=== PATIENT | female | born 1960 ===

== ENCOUNTER 2020-03-31 07:56 | Outpatient (REF) | payer OTHER, SELFPAY ==
--- NOTE | 2020-03-31 08:01 | MM_ITS ---
EXAMINATION: MM SCREENING DIGITAL BREAST TOMOSYNTHESIS, BILATERAL CLINICAL INFORMATION: Screening. Asymptomatic. The lifetime risk of breast cancer based on the Tyrer-Cuzick Model is 6%. COMPARISON: Mammography: 03/26/2019, 11/14/2017, 07/26/2016 TECHNIQUE: Digital breast tomosynthesis is performed in both the craniocaudal and mediolateral oblique views along with computer-aided detection (CAD). Synthesized 2D images are generated from the tomosynthesis. FINDINGS: There are scattered areas of fibroglandular density (ACR BI-RADS breast composition Category b). There are no significant masses, abnormal calcifications, or other abnormalities. Parenchymal pattern is similar to prior studies. Low right axillary tail node on MLO view is stable. The skin contours are unremarkable. MM/MM tomosynthesis screening BI IMPRESSION: No mammographic evidence of malignancy. ASSESSMENT: BI-RADS 1: Negative RECOMMENDATION: Routine annual mammography screening. This patient's information was entered into a reminder system with a target due date for their next mammogram.
== END 2020-03-31 07:57 | disposition home or self-care (01) ==
LOC: HO.MAMMO 07:56
PROVIDERS: PCP Physician Assistant; Visit Provider Physician Assistant
DX: Z12.31 Encounter for screening mammogram for malignant neoplasm of breast (principal)
CPT/HCPCS: 77063; 77067

== ENCOUNTER 2020-04-30 11:07 | Outpatient (REF) | payer OTHER, SELFPAY ==
--- NOTE | 2020-04-30 11:13 | XR_ITS ---
EXAMINATION: XR CHEST CLINICAL INFORMATION: Acute respiratory infection. COMPARISON: None. TECHNIQUE: 2 views of the chest were obtained. FINDINGS: Cardiomediastinal silhouette is normal. There is mild peribronchial thickening centrally and in the lower lobes. Linear atelectasis/scarring in the left midlung. No dense consolidation. No effusion, edema or pneumothorax. No acute osseous abnormality. XR/XR chest 2V IMPRESSION: Mild bronchial wall thickening, can be seen with small airway disease, infectious or inflammatory process. No confluent consolidation seen.
== END 2020-04-30 11:08 | disposition home or self-care (01) ==
LOC: HO.HMGCX 11:07
PROVIDERS: PCP Physician Assistant; Visit Provider Nurse Practitioner Family
DX: J06.9 Acute upper respiratory infection, unspecified (principal)
CPT/HCPCS: 71046

== ENCOUNTER 2020-05-05 08:42 | Outpatient (REF) | payer OTHER, SELFPAY ==
[2020-05-05 09:43] LABS: Microalbum/Creatinine Ratio Ur 8.6 ug/mg cr
[2020-05-05 09:45] LABS: Alanine Aminotransferase 41 U/L (0-31); Albumin Level 3.8 g/dL (3.5-5.0); Alkaline Phosphatase 161 U/L (39-117); Anion Gap 10 (12-20); Aspartate Amino Transferase 16 U/L (5-31); Bilirubin Total 0.6 mg/dL (0.0-1.0); Blood Urea Nitrogen 18 mg/dL (9-16); Carbon Dioxide 32 mmol/L (22-29); Chloride 105 mmol/L (96-108); Cholesterol 177 mg/dL; Estimated Glomerular Filt Rate > 60; Glucose Fasting 80 mg/dL (60-99); HDL Cholesterol 58 mg/dL; LDL Cholesterol Calculated 109 mg/dl; Potassium 3.8 mmol/l (3.3-5.1); Sodium 143 mmol/L (135-145); Total Protein 6.6 g/dL (6.5-8.0); Triglycerides 54 mg/dL
[2020-05-05 10:05] LABS: TSH reflex Free T4 1.24 mIU/mL (0.32-4.0)
== END 2020-05-05 08:43 | disposition home or self-care (01) ==
LOC: HO.LAB 08:42
PROVIDERS: PCP Physician Assistant; Visit Provider Physician Assistant
DX: Z20.828 Contact with and (suspected) exposure to other viral communicable diseases (principal); I10 Essential (primary) hypertension; E03.9 Hypothyroidism, unspecified
CPT/HCPCS: 80053; 80061; 82043; 84443

== ENCOUNTER 2020-11-24 08:53 | Outpatient (REF) | payer OTHER, SELFPAY ==
[2020-11-24 09:33] LABS: Hematocrit 40.9 % (37-47); Hemoglobin 13.3 g/dl (12.0-16.0); Mean Corpuscular HGB Conc 32.5 g/dl (31.0-35.0); Mean Corpuscular Hemoglobin 29.1 pg (27.0-33.0); Mean Corpuscular Volume 89.5 fL (80-98); Mean Platelet Volume 9.8 fL (9.4-12.3); Platelet Count 346 X10*3/uL (160-400); Red Blood Count 4.57 X10*6/uL (4.20-5.50); Red Cell Distribution Width 12.1 % (11.0-16.0)
[2020-11-24 09:42] LABS: Estimated Average Glucose 103 mg/dL; Hemoglobin A1c % 5.2 %
[2020-11-24 09:54] LABS: Creatinine Urine 89.53 mg/dL; Microalbum/Creatinine Ratio Ur 7.8 ug/mg cr
[2020-11-24 10:20] LABS: Alanine Aminotransferase 14 U/L (0-31); Albumin Level 3.8 g/dL (3.5-5.0); Alkaline Phosphatase 157 U/L (39-117); Anion Gap 9 (12-20); Aspartate Amino Transferase 17 U/L (5-31); Bilirubin Total 0.8 mg/dL (0.0-1.0); Blood Urea Nitrogen 14 mg/dL (9-16); Calcium 9.4 mg/dL (8.4-10.2); Carbon Dioxide 29 mmol/L (22-29); Chloride 107 mmol/L (96-108); Cholesterol 169 mg/dL; Estimated Glomerular Filt Rate > 60; Glucose Fasting 90 mg/dL (60-99); HDL Cholesterol 53 mg/dL; LDL Cholesterol Calculated 107 mg/dl; Potassium 4.4 mmol/L (3.3-5.1); Sodium 141 mmol/L (135-145); Total Protein 6.6 g/dL (6.5-8.0); Triglycerides 47 mg/dL
[2020-11-24 10:21] LABS: TSH reflex Free T4 2.88 uIU/mL (0.32-4.0)
== END 2020-11-24 08:54 | disposition home or self-care (01) ==
LOC: HO.LAB 08:53
PROVIDERS: PCP Physician Assistant; Visit Provider Physician Assistant
DX: I10 Essential (primary) hypertension (principal); E03.9 Hypothyroidism, unspecified
CPT/HCPCS: 36415; 80053; 80061; 82043; 83036; 84443; 85027

== ENCOUNTER → 2021-05-13 15:47 | Outpatient (REF) | payer OTHER, SELFPAY | LOC: HO.SL 15:47 | PROVIDERS: PCP Physician Assistant; Visit Provider Physician Assistant | DX: R06.81 Apnea, not elsewhere classified (principal) | CPT/HCPCS: 95806 ==

== ENCOUNTER 2021-06-08 08:56 | Outpatient (REF) | payer OTHER, SELFPAY ==
--- NOTE | ~2021-06-08 | MM_ITS ---
EXAMINATION: MM SCREENING DIGITAL BREAST TOMOSYNTHESIS, BILATERAL CLINICAL INFORMATION: Screening. Asymptomatic. The lifetime risk of breast cancer based on the Tyrer-Cuzick Model is 6%. COMPARISON: Mammography: 03/31/2020, 03/26/2019, 11/14/2017 TECHNIQUE: Digital breast tomosynthesis is performed in both the craniocaudal and mediolateral oblique views along with computer-aided detection (CAD). Synthesized 2D images are generated from the tomosynthesis. FINDINGS: There are scattered areas of fibroglandular density (ACR BI-RADS breast composition Category b). There are no significant masses, abnormal calcifications, or other abnormalities. Parenchymal pattern is similar to prior studies. There is no developing density or architectural abnormality. The axilla and skin contours are unremarkable. No significant changes. MM/MM tomosynthesis screening BI IMPRESSION: No mammographic evidence of malignancy. ASSESSMENT: BI-RADS 1: Negative RECOMMENDATION: Routine annual mammography screening. This patient's information was entered into a reminder system with a target due date for their next mammogram.
== END 2021-06-08 08:57 | disposition home or self-care (01) ==
LOC: HO.MAMMO 08:56
PROVIDERS: PCP Physician Assistant; Visit Provider Physician Assistant
DX: Z12.31 Encounter for screening mammogram for malignant neoplasm of breast (principal)
CPT/HCPCS: 77063; 77067

== ENCOUNTER 2021-08-09 06:14 | Day surgery (SDC) | payer OTHER, SELFPAY ==
[2021-08-05 11:49] VITALS: BMI 31.2
--- NOTE | 2021-08-08 08:34 | P.CONAN_ITS ---
Documented by User: Pinky Valente NP 08/08/21 08:34 HPI - Anesthesia Eval Consult details Narrative: 61yo F for Colonoscopy PMFSH Active Problems Active Problems: All Active Problems (Updated 08/05/21 @ 11:45 by Connie Jaramillo RN) HTN (hypertension) (Acute) Upper respiratory virus (Acute) Conjunctivitis (Acute) HTN (hypertension) (Acute) KASSY (generalized anxiety disorder) (Acute) Hypothyroidism (Acute) Eye pain (Acute) Witnessed episode of apnea (Acute) Paresthesia (Acute) Lower extremity edema (Acute) Past Medical History Medical History (Updated 08/05/21 @ 11:45 by Connie Jaramillo RN) Asthma HTN (hypertension) Hypothyroid Sleep apnea Family History Family History Father Diabetes Hypertension Stroke Mother Dementia Daughter In good health Sister No problems noted. Brother No problems noted. Surgical History Surgical History (Updated 08/05/21 @ 11:46 by Connie Jaramillo RN) H/O colonoscopy History of removal of ovarian cyst History of thyroidectomy Status post cystoscopy Social History Social History Housing: House Alcohol intake: current Alcohol intake frequency: holidays/special occasions only Patient Tobacco Use Status: Never used Tobacco Tobacco use type: Cigarette e-Cigarette/Vaping Use: Never Used Second Hand Smoke Exposure: No Advance Directives: No Advance Directives Information Provided: Yes Advance Directives on File: No Meds Allergies Allergy/AdvReac Type Severity Reaction Status Date / Time No Known Allergies Allergy Verified 03/19/21 13:46 Home Medications Medication Instructions Recorded Confirmed Last Taken Type fluticasone propionate 50 1 spray INTRANASAL DAILY 08/05/21 08/05/21 Unknown History mcg/actuation nasal spray,suspension Exam Exam Date and Time: August 08, 2021 0834 Height,Weight and Vital Signs: Height 5 ft 4.5 in Weight 83.915 kg Assessment and Plan Assessment Anesthesia Assessment: Chart Reviewed Documented by User: Fátima Kathleen MD 08/09/21 06:54 [facility] Past Medical History Medical History (Updated 08/05/21 @ 11:45 by Connie Jaramillo RN) Asthma HTN (hypertension) Hypothyroid Sleep apnea Family History Family History Father Diabetes Hypertension Stroke Mother Dementia Daughter In good health Sister No problems noted. Brother No problems noted. Family history of problems with anesthesia: No Surgical History Surgical History (Updated 08/05/21 @ 11:46 by Connie Jaramillo RN) H/O colonoscopy History of removal of ovarian cyst History of thyroidectomy Status post cystoscopy History of Problems with Anesthesia: No Social History Social History Housing: House Alcohol intake: current Alcohol intake frequency: holidays/special occasions only Patient Tobacco Use Status: Never used Tobacco Tobacco use type: Cigarette e-Cigarette/Vaping Use: Never Used Second Hand Smoke Exposure: No Advance Directives: No Advance Directives Information Provided: Yes Advance Directives on File: No Meds Allergies Allergy/AdvReac Type Severity Reaction Status Date / Time No Known Allergies Allergy Verified 03/19/21 13:46 Home Medications Medication Instructions Recorded Confirmed Last Taken Type fluticasone propionate 50 1 spray INTRANASAL DAILY 08/05/21 08/05/21 Unknown History mcg/actuation nasal spray,suspension Exam Airway Mallampati Class: II TM Dist: >3cm Neck ROM: Full Heart: rrr Lungs: cta Assessment and Plan Assessment Anesthesia Assessment: Anesthesia Plan Discussed and Chart Reviewed Final Anesthetic Review Family History of Problems with Anesthesia: No History of Problems with Anesthesia: No NPO: Yes ASA Class: II Final Preanesthetic Review: No Changes in Pt Med Stat, Meds/Allgs Chart Reviewed and Consent Obtained/Reviewed Patient Risk: Intermediate Procedure Risk: Intermediate Anesthetic Plan Anesthetic Plan: MAC: Disposition: Standard PACU
[2021-08-09 06:25] VITALS: BP 142/85; PULSE 90; RESP 17; TEMP 36.4; O2SAT 98; BMI 30.4
[2021-08-09] MEDS: Lactated Ringers 1,000 ML 100 ML IVCONT (06:59)
--- NOTE | 2021-08-09 08:28 | P.BOP_ITS ---
Brief Operative Note Date of Service: 08/09/21 Pre-op diagnosis: Screening Post-op diagnosis: other (Diverticulosis) Procedure: Colonoscopy to the cecum and TI Surgeon: Paolo Narayan Anesthesia: MAC Was an Hydraulic Hammer Operator used for this Procedure?: No Estimated blood loss (mL): 0 Pathology: none sent Condition: stable Disposition: PACU
[2021-08-09 08:29] VITALS: BP 115/64; PULSE 64; RESP 12; TEMP 36.5; O2SAT 100
[2021-08-09 08:44] VITALS: BP 128/74; PULSE 66; RESP 18; TEMP 36.5; O2SAT 99
--- NOTE | 2021-08-09 09:34 | OP_ITS ---
SURGEON: Paolo Narayan MD INDICATIONS: The patient presents for evaluation of colorectal cancer screening. Full consent has been obtained from her for this, including risks of bleeding and perforation. PREOPERATIVE DIAGNOSIS: Colorectal cancer screening. POSTOPERATIVE DIAGNOSIS: Colorectal cancer screening, sigmoid diverticulosis, and internal hemorrhoids. PROCEDURE PERFORMED: Colonoscopy to the cecum and terminal ileum. ESTIMATED BLOOD LOSS: COMPLICATIONS: ANESTHESIA: Preoperative medication used monitored anesthesia care. ASSISTANTS: SPECIMENS: DESCRIPTION OF PROCEDURE: The patient was placed in the left lateral decubitus position. The digital rectal exam revealed no abnormalities. The Olympus video pediatric colonoscope was entered into the rectum and advanced easily to the cecum. Once in the cecum, I did identify normal-appearing cecal pouch with appendiceal orifice and a normal-appearing ileocecal valve. The terminal ileum was cannulated and appeared normal. The scope was withdrawn back in the colon. The entire cecum and ileocecal valve appeared normal. The scope was slowly withdrawn assessing all mucosal surfaces carefully. Preparation was excellent. I did not visualize any sign of polyps, colitis, or angiodysplasia. There was a mild amount of sigmoid diverticulosis. In the rectum, scope was retroflexed visualizing small internal hemorrhoids, but no other pathology. The rectal mucosa appeared normal. The scope was straightened and withdrawn from the patient. She tolerated the procedure well and was returned to recovery area in stable condition. IMPRESSION: 1. Mild sigmoid diverticulosis. 2. Small internal hemorrhoids. PLAN: Given the negative exam, I would recommend a repeat colonoscopy in 10 years for further screening. She will otherwise see me on a p.r.n. basis. MD TARSHA Hughes/SCOTT / [phone]
== END 2021-08-09 09:05 | disposition home or self-care (01) ==
PROVIDERS: PCP Physician Assistant; Visit Provider Internal Medicine
PROC: 0DJD8ZZ Inspection of Lower Intestinal Tract, Via Natural or Artificial Opening Endoscopic (ICD-10-PCS; CPT 45378; principal; 2021-08-09 07:30)
DX: Z12.11 Encounter for screening for malignant neoplasm of colon (principal); K57.30 Diverticulosis of large intestine without perforation or abscess without bleeding; K64.8 Other hemorrhoids; I10 Essential (primary) hypertension; E03.9 Hypothyroidism, unspecified; G47.33 Obstructive sleep apnea (adult) (pediatric); J45.909 Unspecified asthma, uncomplicated; Z79.51 Long term (current) use of inhaled steroids; Z79.82 Long term (current) use of aspirin; Z79.899 Other long term (current) drug therapy
CPT/HCPCS: 45378

== ENCOUNTER 2022-06-14 09:50 | Outpatient (REF) | payer OTHER, SELFPAY ==
--- NOTE | ~2022-06-14 | MM_ITS ---
EXAMINATION: MM SCREENING DIGITAL BREAST TOMOSYNTHESIS, BILATERAL CLINICAL INFORMATION: Screening. Asymptomatic. The lifetime risk of breast cancer based on the Tyrer-Cuzick Model is 5%. COMPARISON: Mammography: 06/08/2021, 04/06/2020, 03/26/2019, 11/14/2017 TECHNIQUE: Digital breast tomosynthesis is performed in both the craniocaudal and mediolateral oblique views along with computer-aided detection (CAD). Synthesized 2D images are generated from the tomosynthesis. FINDINGS: There are scattered areas of fibroglandular density (ACR BI-RADS breast composition Category b). There are no significant masses, abnormal calcifications, or other abnormalities. There is summation density posterior outer right breast on synthesized right CC view no developing density or architectural abnormality. The axilla and skin contours are unremarkable. No significant changes. MM/MM tomosynthesis screening BI IMPRESSION: No mammographic evidence of malignancy. ASSESSMENT: BI-RADS 2: Benign RECOMMENDATION: Routine annual mammography screening. This patient's information was entered into a reminder system with a target due date for their next mammogram.
== END 2022-06-14 09:51 | disposition home or self-care (01) ==
LOC: HO.MAMMO 09:50
PROVIDERS: PCP Physician Assistant; Visit Provider Physician Assistant
DX: Z12.31 Encounter for screening mammogram for malignant neoplasm of breast (principal)
CPT/HCPCS: 77063; 77067

== ENCOUNTER 2022-07-26 07:38 | Outpatient (REF) | payer OTHER, SELFPAY ==
[2022-07-26 08:13] LABS: Basophils Absolute Auto 0.1 X10*3/uL (0.0-0.2); Basophils Percent Auto 2.4 % (0-2); Eosinophils Absolute Auto 0.4 X10*3/uL (0.0-0.4); Eosinophils Percent Auto 7.3 % (0-4); Hematocrit 40.1 % (37.0-47.0); Hemoglobin 13.4 g/dl (12.0-16.0); Imm Gran Abs Auto 0.02 X10*3/uL (0.00-0.03); Imm Gran Pct Auto 0.4 % (0.0-0.4); Lymphocytes Percent Auto 36.8 % (20-40); MANUAL DIFF FLAG NO; Mean Corpuscular HGB Conc 33.4 g/dl (31.0-35.0); Mean Corpuscular Hemoglobin 28.8 pg (27.0-33.0); Mean Corpuscular Volume 86.2 fL (80.0-98.0); Mean Platelet Volume 9.5 fL (9.4-12.3); Monocytes Absolute Auto 0.4 X10*3/uL (0.1-1.2); Monocytes Percent Auto 6.9 % (2-11); Neutrophils Absolute Auto 2.5 x10*3/uL (2.0-8.3); Neutrophils Percent Auto 46.2 % (45-73); Platelet Count 358 X10*3/uL (160-400); Red Blood Count 4.65 X10*6/uL (4.20-5.50); Red Cell Distribution Width 12.3 % (11.0-16.0); White Blood Count 5.4 X10*3/uL (4.8-10.8)
[2022-07-26 12:28] LABS: Alanine Aminotransferase 21 U/L (0-31); Albumin Level 3.7 g/dL (3.5-5.0); Alkaline Phosphatase 170 U/L (39-117); Anion Gap 16 (12-20); Aspartate Amino Transferase 19 U/L (5-31); Bilirubin Total 0.7 mg/dL (0.0-1.0); Blood Urea Nitrogen 15 mg/dL (9-16); Calcium 9.1 mg/dL (8.4-10.2); Carbon Dioxide 23 mmol/L (22-29); Chloride 107 mmol/L (96-108); Cholesterol 189 mg/dL; Estimated Glomerular Filt Rate > 60; Glucose Fasting 96 mg/dL (60-99); HDL Cholesterol 50 mg/dL; LDL Cholesterol Calculated 125 mg/dl; Potassium 4.4 mmol/L (3.3-5.1); Sodium 142 mmol/L (135-145); Total Protein 6.3 g/dL (6.5-8.0); Triglycerides 71 mg/dL
[2022-07-26 12:56] LABS: Folate 13.1 ng/mL (> or = 4.0); Free T4 (Free Thyroxine) 1.15 ng/dL (0.71-1.85); TSH reflex Free T4 0.25 uIU/mL (0.32-4.0); Vitamin B12 484 pg/mL (200-900); Vitamin D 25-OH Total 39.2 ng/mL (>30)
== END 2022-07-26 07:39 | disposition home or self-care (01) ==
LOC: HO.LAB 07:38
PROVIDERS: PCP Physician Assistant; Visit Provider Nurse Practitioner Family
DX: E03.9 Hypothyroidism, unspecified (principal); I10 Essential (primary) hypertension; J45.909 Unspecified asthma, uncomplicated; F41.9 Anxiety disorder, unspecified
CPT/HCPCS: 36415; 80053; 80061; 82306; 82607; 82746; 84439; 84443; 85025

== ENCOUNTER 2022-09-20 08:19 | Outpatient (REF) | payer OTHER, SELFPAY ==
[2022-09-20 09:34] LABS: TSH reflex Free T4 0.12 uIU/mL (0.32-4.0)
[2022-09-20 10:45] LABS: Free T4 (Free Thyroxine) 1.65 ng/dL (0.71-1.85)
== END 2022-09-20 08:20 | disposition home or self-care (01) ==
LOC: HO.LAB 08:19
PROVIDERS: Visit Provider Nurse Practitioner Family
DX: E03.9 Hypothyroidism, unspecified (principal)
CPT/HCPCS: 36415; 84439; 84443

== ENCOUNTER 2022-11-15 07:40 | Outpatient (REF) | payer OTHER, SELFPAY | END 2022-11-15 07:41 | disposition home or self-care (01) | LOC: HO.LAB 07:40 | PROVIDERS: PCP Physician Assistant; Visit Provider Nurse Practitioner Family | DX: E03.9 Hypothyroidism, unspecified (principal) | CPT/HCPCS: 36415; 84443 ==

== ENCOUNTER 2023-01-27 15:29 | Outpatient (AMB) | payer OTHER, SELFPAY ==
[2023-01-27 15:49] VITALS: BP 130/86; PULSE 78; RESP 16; O2SAT 98; BMI 27.2
--- NOTE | 2023-01-27 15:49 | MHC.PC.OV ---
Vital Signs 01/27/23 15:49 Height 5 ft 4.5 in Weight 161 lb 2 oz BMI 27.2 BP 130/86 Blood Pressure Location Lt brachial Position Sitting Respiration 16 Pulse 78 Pulse Source Pulse Oximeter Pulse Oximetry (%) 98 Oxygen Delivery Method Room Air Intake Visit Reasons: HTN, thyroid Intake Note: Patient is here to follow up on HTN and thyroid. Information Technology Security Manager Required: No Accompanied by: Self / Same As Patient Allergies No Known Allergies Allergy (Verified 01/27/23 16:12) Medication List - Last Reconciled 01/27/23 by Luis Coker PA-C albuterol sulfate 90 mcg/actuation (ProAir HFA) 2 puffs inhalation Q4-6H PRN aspirin 81 mg PO DAILY compr.stocking,knee,long,large As directed levothyroxine 112 mcg PO DAILY lisinopril 20 mg PO DAILY Tobacco use date assessed: 07/24/22 Fall risk assessment: No Falls in past year Last assessed Fall Risk: 01/27/23 Dental Screening Dental Screen Date: 01/27/23 Did you have a dental visit in the last 12 months?: Yes Did you have a dental problem in the last 6 months where you did not have access to dental care?: No Was dental information given to patient?: Patient has dentist HPI HTN, thyroid HPI Details This 62year-old female here today for a follow-up visit. Patient has a past medical history significant for hypertension, hypothyroidism, generalized anxiety disorder. . .. HTN: Blood pressure acceptable today in office. She does report at times feeling somewhat lightheaded with changes in her body position. Questioning orthostatic hypotension. Has lost a significant amount of weight since last office visit intentionally as she has been more physically active and adapting to better eating habits. . Hypothyroidism: TSH recently found to be low thus levothyroxine dose has been reduced to 112 mcg. Most recent TSH has stabilized.. .. Asthma: Has been fairly well controlled, has been able to hike and be more physically active without much shortness of breath. Only rarely using her albuterol inhaler. COUNTS INCLUDE 234 BEDS AT THE [facility] Medical History Asthma Hypothyroid HTN (hypertension) Sleep apnea Surgical History H/O colonoscopy Status post cystoscopy History of removal of ovarian cyst History of thyroidectomy Family History Father Diabetes Hypertension Stroke Mother Dementia Daughter In good health Sister No problems noted. Brother No problems noted. Social History Housing: House Alcohol intake: current Alcohol intake frequency: holidays/special occasions only Patient Tobacco Use Status: Never used Tobacco Tobacco use type: Cigarette e-Cigarette/Vaping Use: Never Used Second Hand Smoke Exposure: No service: No Cognitive needs: No Hearing needs: No Vision needs: No Questionnaire Thrive Questionnaire Date Thrive assessed: 07/24/22 KASSY-7 AMB Questionnaire KASSY-7 Date KASSY - 7 assessed: 07/24/22 Source: Developed by Drs. Paolo Salazar, Genny Juarez, Hamilton Rashid and colleagues, with an educational yung from [employer]. ACT Questionnaire In the past 4 weeks, how much of the time did your asthma keep you from getting as much done at work, school or at home?: None of the time During the past 4 weeks, how often have you had shortness of breath?: Not at all During the past 4 weeks, how often did your asthma symptoms wake you up at night or earlier than usual in the morning?: Not at all During the past 4 weeks, how often have you had to use your rescue inhaler or nebulizer medication?: Not at all How would you rate your asthma control during the past 4 weeks?: Completely controlled Score: 25 Review of Systems Const Denies headache(s) Eyes Denies loss of vision ENT Denies vertigo, Denies dizziness, Denies headache(s) and Denies sore throat Card Denies chest pain, Denies leg edema and Denies lightheadedness Resp Denies cough, Denies hemoptysis and Denies wheezing GI Denies abdominal pain, Denies melena, Denies constipation, Denies diarrhea and Denies vomiting Denies urinary frequency, Denies dysuria and Denies urinary urgency Musc Denies arthralgias, Denies joint swelling, Denies numbness and Denies tingling Neuro Denies Abnormal speech present, Denies behavioral changes, Denies vertigo, Denies dizziness, Denies headache(s), Denies loss of vision, Denies memory loss, Denies numbness and Denies tingling Psych Denies anxiety, Denies behavioral changes, Denies depression, Denies memory loss and Denies panic attacks [place]/Lymph Denies easy bleeding and Denies easy bruising Aller/Immun Denies wheezing Physical exam (Primary Care) Vital Signs: Last Vital Signs Pulse 78 01/27/23 15:49 Resp 16 01/27/23 15:49 BP 130/86 01/27/23 15:49 Pulse Ox 98 01/27/23 15:49 Oxygen Delivery Method Room Air 01/27/23 15:49 BMI result Body Mass Index 27.2 Tobacco/Smoking Status: Tobacco use Status Tobacco use date assessed 07/24/22 01/27/23 15:54 Patient Tobacco Use Status Never used Tobacco 01/27/23 15:54 Tobacco use type Cigarette 01/27/23 15:54 e-Cigarette/Vaping Use Never Used 01/27/23 15:54 Thrive Assessment: Date of Thrive Assessment Date Thrive assessed 07/24/22 01/27/23 15:54 Const General: healthy appearing, no acute distress, alert and awake Nutritional Appearance: well nourished Orientation/consciousness: oriented to person, oriented to place and oriented to time HENMT Ears: TM's normal bilaterally General nose exam: Normal nasal mucous membranes and turbinates present Eyes Conjunctivae: conjunctivae normal Sclerae: sclerae normal Pupils: Equal, round and reactive pupils present Neck Neck: Yes no lymphadenopathy and Yes no JVD Thyroid: Thyroid normal Carotids: no bruits Resp Effort & Inspection: normal respiratory effort and not tachypneic Auscultation: no crackles, no rales, no rhonchi and no wheezes Cardio Rate: regular rate Rhythm: regular rhythm Heart sounds: no murmurs and normal S1 and S2 GI Palpation (GI): Soft to palpation, nontender, no hepatomegaly and no splenomegaly Auscultation: normal bowel sounds Skin General skin exam: no rashes or lesions noted and dry skin Neuro General: oriented to person, oriented to place and oriented to time Cranial nerves: Yes Equal, round and reactive pupils present Speech: No Abnormal speech present Gait exam (Neuro): Normal gait present Motor exam (neuro): no tremor noted Extrem Right upper extremity: full ROM Left upper extremity: full ROM Right lower extremity: full ROM; no edema Left lower extremity: full ROM; no edema Psych Mental Status: mental status grossly normal Speech and movement: Normal speech and movement present Affect: normal affect Attitude: cooperative Thought process: Normal thought process present Assessment and Plan Assessment & Plan (1) HTN (hypertension): Code(s): I10 - Essential (primary) hypertension Qualifiers: Hypertension type: primary hypertension Qualified Code(s): I10 - Essential (primary) hypertension Plan: Blood pressure acceptable today in office. Has been noting some dizziness with changes in body position. Has lost significant amount of weight intentionally. Will reduce her dose of lisinopril to 10 mg. Goal blood pressures to be below 140/90. Again advised low-sodium diet and being more physically active to reduce her weight. (2) Hypothyroidism: Code(s): E03.9 - Hypothyroidism, unspecified Qualifiers: Hypothyroidism type: unspecified Qualified Code(s): E03.9 - Hypothyroidism, unspecified Plan: Patient's TSH normal will continue her on current dose of levothyroxine. (3) Asthma: Comment: mild Code(s): J45.909 - Unspecified asthma, uncomplicated Qualifiers: Asthma severity: mild Asthma persistence: intermittent Asthma complication type: uncomplicated Qualified Code(s): J45.20 - Mild intermittent asthma, uncomplicated Plan: Patient's asthma is reported as well controlled with only p.r.n. use of albuterol inhaler. She does not have any nighttime awakenings with asthma symptoms or recent asthma exacerbations per Orders: Orders Comprehensive [place]. Panel Fast 4 Months I10 - Essential (primary) hypertension Complete Blood Count no Diff 4 Months I10 - Essential (primary) hypertension TSH reflex Free T4 4 Months E03.9 - Hypothyroidism, unspecified Microalbumin, Random (w Creat) 4 Months I10 - Essential (primary) hypertension Medications: New lisinopril 10 mg PO DAILY 90 days 90 tabs 1RF I10 - Essential (primary) hypertension Discontinued lisinopril Discontinued Reason: Doctor's Order 20 mg PO DAILY 90 tabs 1RF I10 - Essential (primary) hypertension Coding Level of Care Code Est Pt Level 4 (50226) Diagnoses Primary hypertension I10 Hypertension type: primary hypertension Hypothyroidism, unspecified type E03.9 Hypothyroidism type: unspecified Mild intermittent asthma without complication J45.20 Asthma severity: mild Asthma persistence: intermittent Asthma complication type: uncomplicated
== END 2023-01-27 16:29 | disposition home or self-care (01) ==
PROVIDERS: PCP Physician Assistant; Visit Provider Physician Assistant
DX: I10 Essential (primary) hypertension (principal); E03.9 Hypothyroidism, unspecified; J45.20 Mild intermittent asthma, uncomplicated
CPT/HCPCS: 99214

== ENCOUNTER 2023-06-06 08:11 | Outpatient (REF) | payer OTHER, SELFPAY ==
[2023-06-06 09:05] LABS: Hematocrit 41.6 % (37.0-47.0); Hemoglobin 13.5 g/dl (12.0-16.0); Mean Corpuscular HGB Conc 32.5 g/dl (31.0-35.0); Mean Corpuscular Hemoglobin 28.2 pg (27.0-33.0); Mean Corpuscular Volume 86.8 fL (80.0-98.0); Mean Platelet Volume 9.5 fL (9.4-12.3); Platelet Count 389 X10*3/uL (160-400); Red Blood Count 4.79 X10*6/uL (4.20-5.50); Red Cell Distribution Width 11.8 % (11.0-16.0); White Blood Count 5.4 X10*3/uL (4.8-10.8)
[2023-06-06 09:41] LABS: Alanine Aminotransferase 30 U/L (0-31); Albumin Level 3.9 g/dL (3.5-5.0); Alkaline Phosphatase 189 U/L (39-117); Anion Gap 11 (12-20); Aspartate Amino Transferase 28 U/L (5-31); Bilirubin Total 0.4 mg/dL (0.0-1.0); Blood Urea Nitrogen 16 mg/dL (9-16); Calcium 9.3 mg/dL (8.4-10.2); Carbon Dioxide 29 mmol/L (22-29); Chloride 107 mmol/L (96-108); Estimated Glomerular Filt Rate > 60; Glucose Fasting 91 mg/dL (60-99); Potassium 4.1 mmol/L (3.3-5.1); Sodium 143 mmol/L (135-145); Total Protein 6.8 g/dL (6.5-8.0)
[2023-06-06 09:45] LABS: Creatinine Urine 91.42 mg/dL; Microalbum/Creatinine Ratio Ur 6.5 ug/mg cr (<30)
[2023-06-06 10:01] LABS: TSH reflex Free T4 2.05 uIU/mL (0.32-4.0)
== END 2023-06-06 08:12 | disposition home or self-care (01) ==
LOC: HO.LAB 08:11
PROVIDERS: PCP Physician Assistant; Visit Provider Physician Assistant
DX: I10 Essential (primary) hypertension (principal); E03.9 Hypothyroidism, unspecified
CPT/HCPCS: 36415; 80053; 82043; 82570; 84443; 85027

== ENCOUNTER 2023-06-20 09:08 | Outpatient (REF) | payer OTHER, SELFPAY | END 2023-06-20 09:09 | disposition home or self-care (01) | LOC: HO.MAMMO 09:08 | PROVIDERS: PCP Physician Assistant; Visit Provider Physician Assistant | DX: Z12.31 Encounter for screening mammogram for malignant neoplasm of breast (principal) | CPT/HCPCS: 77063; 77067 ==

== ENCOUNTER → 2023-06-20 09:15 | Outpatient (BNV) | payer OTHER, SELFPAY | PROVIDERS: PCP Physician Assistant; Visit Provider Radiology Diagnostic Radiology | DX: Z12.31 Encounter for screening mammogram for malignant neoplasm of breast (principal) | CPT/HCPCS: 77063; 77067 ==

== ENCOUNTER 2023-07-29 14:17 | Outpatient (AMB) | payer OTHER, SELFPAY ==
[2023-07-29 14:44] VITALS: BP 150/84; PULSE 84; RESP 16; O2SAT 97; BMI 27.5
--- NOTE | 2023-07-29 14:44 | A.OFFPC_ITS ---
Vital Signs 07/29/23 14:44 Height 5 ft 4.5 in Weight 163 lb BMI 27.5 BP 150/84 H Blood Pressure Location Lt brachial Position Sitting Respiration 16 Pulse 84 Pulse Source Pulse Oximeter Pulse Oximetry (%) 97 Oxygen Delivery Method Room Air Intake Visit Reasons: Annual exam Intake Note: Patient is here today for a physical. Accompanied by: Self / Same As Patient Allergies No Known Allergies Allergy (Verified 07/29/23 14:52) Medication List - Last Reconciled 07/29/23 by Luis Coker PA-C albuterol sulfate 90 mcg/actuation (ProAir HFA) 2 puffs inhalation Q4-6H PRN compr.stocking,knee,long,large As directed levothyroxine 112 mcg PO DAILY lisinopril 10 mg PO DAILY 90 days Tobacco use date assessed: 07/29/23 Fall risk assessment: No Falls in past year Last assessed Fall Risk: 07/29/23 Dental Screening Dental Screen Date: 07/29/23 Did you have a dental visit in the last 12 months?: Yes Did you have a dental problem in the last 6 months where you did not have access to dental care?: No Was dental information given to patient?: Patient has dentist HPI Annual exam HPI Details This 63 year-old female here today for PE . Patient has a past medical history significant for hypertension, hypothyroidism, generalized anxiety disorder. . .. HTN: Blood pressure slightly elevated today in office. She reports that home blood pressures have been 120s to 130 systolic. At last visit we did discuss reducing her lisinopril due to signs symptoms of hypotension. She otherwise feels very good . Hypothyroidism: TSH recently found to be low thus levothyroxine dose has been reduced to 112 mcg. Most recent TSH has stabilized.. .. Asthma: Has been fairly well controlled, has been able to hike and be more physically active without much shortness of breath. Only rarely using her albuterol inhaler. Mammogram: Mammograms BI-RADS 18 June 2023 // Colonoscopy: Colonoscopy done in 2021- normal- 10 year .. Vaccine: UTD with FLu, UTD with Tdap. Up-to-date with shingles, pneumonia and COVID vaccine [facility] Medical History Asthma Hypothyroid HTN (hypertension) Sleep apnea Surgical History H/O colonoscopy Status post cystoscopy History of removal of ovarian cyst History of thyroidectomy Family History Father Diabetes Hypertension Stroke Mother Dementia Daughter In good health Sister No problems noted. Brother No problems noted. Social History (Updated 07/29/23 @ 14:58 by Luis Coker PA-C) Housing: House Alcohol intake: current Alcohol intake frequency: holidays/special occasions only Patient Tobacco Use Status: Never used Tobacco Tobacco use type: Cigarette e-Cigarette/Vaping Use: Never Used Second Hand Smoke Exposure: No service: No Current occupational status: employed Current occupation: [employer] Cognitive needs: No Hearing needs: No Vision needs: No Questionnaire PHQ-9 Over the last 2 weeks, how often have you been bothered by any of the following problems? 1. Little interest or pleasure in doing things: not at all 2. Feeling down, depressed, or hopeless: not at all 3. Trouble falling or staying asleep, or sleeping too much: not at all 4. Feeling tired or having little energy: not at all 5. Poor appetite or overeating: not at all 6. Feeling bad about yourself - or that you are a failure or have let yourself or your family down: not at all 7. Trouble concentrating on things, such as reading the newspaper or watching television: not at all 8. Moving or speaking so slowly that other people could have noticed. Or the opposite - being so fidgety or restless that you have been moving around a lot more than usual: not at all 9. Thoughts that you would be better off or of hurting yourself in some way: not at all Total score: 0 Depression Screening Interpretation: Negative Depression Screening Done: Yes 83361 - PHQ-9 Billing: Yes Source: Developed by Drs. Paolo Salazar, Genny Juarez, Hamilton Rashid and colleagues, with an educational yung from [employer]. Thrive Questionnaire Date Thrive assessed: 07/29/23 I am a: Patient What is your living situation today?: I have a steady place to live Within the past 12 months, did the food you bought not last and you didn't have the money to get more?: Never true Within the past 12 months, did you worry whether your food would run out before you got money to buy more?: Never true Do you have trouble paying for medicines?: No Do you have trouble getting transportation to medical appointments?: No Do you have trouble paying your heating and electricity bill?: No Do you have trouble taking care of your child, family member or friend?: No Do you have trouble with day-to-day activities such as bathing, preparing meals, shopping, managing finances, etc.?: No Are you currently unemployed and looking for a job?: No Are you interested in more education?: No Please select the resources that you would like help with: None Currently or been in a relationship where the following occur: no concerns reported THRIVE Score: 0 AUDIT C Alcohol Use Questionnaire (AUDIT-C) 1. How often do you have a drink containing alcohol?: Monthly or less 2. How many drinks containing alcohol do you have on a typical day when you are drinking?: 1 or 2 3. How often do you have six or more drinks on one occasion?: Never Total Score: 1 KASSY-7 AMB Questionnaire KASSY-7 Date KASSY - 7 assessed: 07/29/23 Feeling nervous, anxious, or on edge: 0 = Not at all Not being able to stop or control worryin = Not at all Worrying too much about different things: 0 = Not at all Trouble relaxin = Not at all Being so restless that it is hard to sit still: 0 = Not at all Becoming easily annoyed or irritable: 0 = Not at all Feeling afraid as if something awful might happen: 0 = Not at all Total KASSY-7 score (0-4 normal; 5-9 mild; 10-14 moderate; 15-21 severe): 0 Source: Developed by Drs. Paolo Salazar, Genny Juarez, Hamilton Rashid and colleagues, with an educational yung from [employer]. KASSY-7 Assessment Billing KASSY-7 Assessment Tool: KASSY-7 Assessment 47773 ACT Questionnaire In the past 4 weeks, how much of the time did your asthma keep you from getting as much done at work, school or at home?: None of the time During the past 4 weeks, how often have you had shortness of breath?: Not at all During the past 4 weeks, how often did your asthma symptoms wake you up at night or earlier than usual in the morning?: Not at all During the past 4 weeks, how often have you had to use your rescue inhaler or nebulizer medication?: Not at all How would you rate your asthma control during the past 4 weeks?: Completely controlled ACT Interpretation: Negative Score: 25 Review of Systems Const Denies body aches, Denies chills, Denies excessive sweating, Denies fatigue, Denies fever(s) and Denies headache(s) Eyes Denies blurry vision ENT Denies dysphagia, Denies vertigo, Denies dizziness, Denies headache(s), Denies hearing loss and Denies tinnitus Card Denies chest pain, Denies chest pain with activity, Denies syncope, Denies irregular heart rhythm and Denies dyspnea Resp Denies chest congestion, Denies cough, Denies hemoptysis, Denies dyspnea and Denies wheezing GI Denies abdominal pain, Denies melena, Denies hematochezia, Denies coffee ground emesis, Denies dysphagia, Denies diarrhea, Denies nausea and Denies vomiting Denies urinary frequency, Denies dysuria, Denies urinary hesitancy and Denies urinary urgency Musc Denies arthralgias, Denies limited range of motion, Denies muscle cramps and Denies muscle weakness Skin/Breast Denies rash and Denies skin ulcer Neuro Denies Abnormal speech present, Denies confusion, Denies vertigo, Denies dizziness, Denies syncope, Denies headache(s), Denies memory loss and Denies seizure-like activity Psych Denies anxiety, Denies confusion, Denies depression, Denies memory loss, Denies panic attacks and Denies paranoia Endo Denies excessive sweating, Denies fatigue, Denies flushing, Denies polydipsia and Denies polyuria Aller/Immun Denies wheezing Physical exam (Primary Care) Vital Signs: Last Vital Signs Pulse 84 07/29/23 14:44 Resp 16 07/29/23 14:44 BP 150/84 H 07/29/23 14:44 Pulse Ox 97 07/29/23 14:44 Oxygen Delivery Method Room Air 07/29/23 14:44 BMI result Body Mass Index 27.5 Tobacco/Smoking Status: Tobacco use Status Tobacco use date assessed 07/29/23 07/29/23 14:51 Patient Tobacco Use Status Never used Tobacco 07/29/23 14:58 Tobacco use type Cigarette 07/29/23 14:58 e-Cigarette/Vaping Use Never Used 07/29/23 14:58 PHQ-9: PHQ-9 Score PHQ-9: Total score 0 07/29/23 14:53 Depression Screening Interpretation: Negative Thrive Assessment: Date of Thrive Assessment Date Thrive assessed 07/29/23 07/29/23 14:51 Currently or been in a relationship where the following occur: no concerns reported Const General: cooperative, comfortable, no acute distress, alert and awake; No confusion Orientation/consciousness: oriented to person, oriented to place, patient oriented x3 and No confusion HENMT Head: Yes normocephalic Ears: external ears normal and TM's normal bilaterally Face and sinus: No sinus tenderness Mouth: Normal oral and palatal mucosa present and tongue normal Teeth and gingiva: dentition normal and gingiva normal Throat: Yes posterior oropharynx normal, Yes tonsils normal and Yes uvula midline Eyes Conjunctivae: conjunctivae normal Sclerae: sclerae normal Pupils: Equal, round and reactive pupils present EOM: EOMs intact bilaterally Direct Ophthalmoscopy: No no photophobia Neck Neck: Yes no lymphadenopathy, No tender and Yes no JVD Thyroid: Thyroid normal Carotids: no bruits Chest Chest palpation & inspection: no tenderness Resp Effort & Inspection: normal respiratory effort, no audible wheezes, not labored and no stridor Auscultation: no crackles, no rales, no rhonchi and no wheezes Cardio Jugular venous distension: no JVD Rate: regular rate, not bradycardic and not tachycardic Rhythm: regular rhythm Bruits: no carotid bruits Peripheral pulses: Peripheral pulses 2+ throughout GI Inspection: Yes normal to inspection, No abdominal wall ecchymosis and No visible herniation Palpation (GI): Soft to palpation, nontender, no guarding, not rigid and No hepatosplenomegaly present Auscultation: normoactive bowel sounds General: Yes no CVA tenderness Back/Spine/Pelvis Back: no CVA tenderness and No back tenderness Cervical Spine: cervical ROM normal Thoracic/Lumbar Spine: thoracic and lumbar spine normal to inspection, straight leg raise negative bilaterally, No thoraco-lumbar ROM limited and No lumbar spinal tenderness Skin Lesions: no lesions Rashes: no rashes Wounds: no wounds Neuro General: oriented to person, oriented to place, patient oriented x3, CN's II-XI intact bilaterally and No confusion Cranial nerves: Yes Equal, round and reactive pupils present and Yes Normal accommodation reflex present Cognition (Neuro): normal cognition Speech: No Abnormal speech present Gait exam (Neuro): Normal gait present Motor exam (neuro): 5/5 motor strength present throughout Extrem Right upper extremity: full ROM; no cyanosis Left upper extremity: full ROM; no cyanosis Right lower extremity: no edema Left lower extremity: no edema Psych Appearance: grossly normal Mental Status: mental status grossly normal Affect: normal affect Attitude: cooperative Thought process: Normal thought process present Assessment and Plan Assessment & Plan (1) Adult general medical exam: Code(s): Z00.00 - Encounter for general adult medical examination without abnormal findings (2) HTN (hypertension): Code(s): I10 - Essential (primary) hypertension Qualifiers: Hypertension type: primary hypertension Qualified Code(s): I10 - Essential (primary) hypertension Plan: Blood pressure slightly elevated today in office. Continues on lisinopril 10 mg and feels great. She reports blood pressures at home are ranging 120-130 systolic. Goal blood pressures to be below 140/90. Again advised low-sodium diet and being more physically active to reduce her weight. (3) Hypothyroidism: Code(s): E03.9 - Hypothyroidism, unspecified Qualifiers: Hypothyroidism type: unspecified Qualified Code(s): E03.9 - Hypothyroidism, unspecified Plan: Patient's TSH normal will continue her on current dose of levothyroxine. (4) Asthma: Comment: mild Code(s): J45.909 - Unspecified asthma, uncomplicated Qualifiers: Asthma complication type: uncomplicated Asthma persistence: intermi ttent Asthma severity: mild Qualified Code(s): J45.20 - Mild intermittent asthma, uncomplicated Plan: Patient's asthma is reported as well controlled with only p.r.n. use of albuterol inhaler. She does not have any nighttime awakenings with asthma symptoms or recent asthma exacerbations per (5) Post-menopausal: Code(s): Z78.0 - Asymptomatic menopausal state Plan: Now 63 years of age. Willing to get bone density screening Orders: Orders Comprehensive [place]. Panel Fast 07/29/23 I10 - Essential (primary) hypertension TSH reflex Free T4 07/29/23 E03.9 - Hypothyroidism, unspecified XR DEXA axial skeleton 07/29/23 Z78.0 - Asymptomatic menopausal state Medications: Refilled levothyroxine 112 mcg PO DAILY 90 tabs 2RF E03.9 - Hypothyroidism, unspecified lisinopril 10 mg PO DAILY 90 tabs 2RF 90 days I10 - Essential (primary) hypertension Coding Level of Care Code Est Pt Prev Care >65y(92023) Diagnoses Adult general medical exam Z00.00 Primary hypertension I10 Hypertension type: primary hypertension Hypothyroidism, unspecified type E03.9 Hypothyroidism type: unspecified Mild intermittent asthma without complication J45.20 Asthma complication type: uncomplicated Asthma persistence: intermittent Asthma severity: mild Post-menopausal Z78.0 Additional Codes KASSY-7 Assessment Billing - KASSY-7 Assessment Tool: KASSY-7 Assessment [id number] ([id number])
== END 2023-07-29 15:13 | disposition home or self-care (01) ==
PROVIDERS: Visit Provider Physician Assistant
DX: Z00.00 Encounter for general adult medical examination without abnormal findings (principal); I10 Essential (primary) hypertension; E03.9 Hypothyroidism, unspecified; J45.20 Mild intermittent asthma, uncomplicated; Z78.0 Asymptomatic menopausal state
CPT/HCPCS: 99397

== ENCOUNTER 2023-08-21 14:12 | Outpatient (REF) | payer OTHER, SELFPAY ==
--- NOTE | ~2023-08-21 | MM_ITS ---
EXAMINATION: BONE DENSITOMETRY CLINICAL INDICATION: Asymptomatic menopausal state. COMPARISON: This is the patient's baseline examination. TECHNIQUE: Using a [employer] DXA System (software version: 13.1) manufactured by [employer], dual-energy x-ray absorptiometry was performed of the lumbar spine and left hip. The images are of good technical quality. Summary results are attached. FINDINGS: LEFT FEMUR, NECK: BMD 0.865 g/cm2, Z-score 0.0, T-score -1.2, osteopenia. LEFT FEMUR, TOTAL: BMD 0.837 g/cm2, Z-score -0.4, T-score -1.4, osteopenia. AP SPINE L1-L4: BMD 0.875 g/cm2, Z-score -1.3, T-score -2.5, osteoporosis. IDENTIFIED RISK FACTORS: Menopause. HISTORY OF FRACTURE: None listed. MEDICATIONS: None listed. MM/XR DEXA axial skeleton IMPRESSION: 1. DIAGNOSIS: Osteoporosis based on the lowest T-score value of -2.5 in the lumbar spine applying World Health Organization criteria. 2. 10-YEAR FRACTURE RISK PREDICTION, FRAX: According to the guidelines, FRAX calculation should only be performed on patients in the osteopenia bone density category. Therefore, FRAX was not performed on this patient. 3. Treatment Recommendations: NOF guidelines recommend consideration for treatment in postmenopausal women and men age 50 and older presenting with the following: -A hip or vertebral (clinical or morphometric) fracture. -T-score less than or equal to -2.5 at the femoral neck or spine after appropriate evaluation to exclude secondary causes. -Low bone mass at the hip or spine and a 10-year fracture probability by FRAX of greater than or equal to 3% for hip fracture or greater than or equal to 20% for major osteoporotic fracture based on the [place] adapted WHO algorithm. 4. Other Recommendations: All treatment decisions require clinical judgment and consideration of individual patient factors, including patient preferences, comorbidities, previous drug use, risk factors not captured in the FRAX model (e.g. frailty, falls, vitamin D deficiency, increased bone turnover, interval significant decline in bone density) and possible under or overestimation of fracture risk by FRAX. Additional medical evaluation for secondary cause of low bone mineral density may be appropriate. FUTURE SCAN RECOMMENDATION: People with diagnosed cases of osteoporosis or at high risk for fracture should have regular bone mineral density tests. For patients eligible for Medicare, routine testing is allowed once every 2 years. The testing frequency can be increased to one year for patients who have rapidly progressing disease, those who are receiving or discontinuing medical therapy to restore bone mass, or have additional risk factors.
== END 2023-08-21 14:13 | disposition home or self-care (01) ==
LOC: HO.MAMMO 14:12
PROVIDERS: PCP Physician Assistant; Visit Provider Physician Assistant
DX: Z13.820 Encounter for screening for osteoporosis (principal); Z78.0 Asymptomatic menopausal state
CPT/HCPCS: 77080

== ENCOUNTER 2024-03-05 09:26 | Outpatient (AMB) | payer OTHER, SELFPAY ==
[2024-03-05 10:35] VITALS: BP 130/84; PULSE 71; TEMP 36.6; O2SAT 96; BMI 29.9
--- NOTE | 2024-03-05 10:35 | AM.OFFWIN_ITS ---
Intake Vital Signs 03/05/24 10:35 Height 5 ft 4.5 in Weight 177 lb BMI 29.9 BP 130/84 Blood Pressure Location Lt brachial Position Sitting Pulse 71 Pulse Source Pulse Oximeter Temp 97.9 F Temp Source Oral Pulse Oximetry (%) 96 Oxygen Delivery Method Room Air Intake Visit Reasons: EP-lt eye swollen Intake Note: Pt is here today c/o Lt eye swollen and red started yesterday ?allergic reaction: took benadryl and it relieved it a little Patient Tobacco Use Status: Never used Tobacco Allergies No Known Allergies Allergy (Verified 03/05/24 10:37) HPI HPI Comments History of Present Illness Details She presents to office with L eye edema Onset yesterday + edema and itching Located upper eyelid Took Benadryl which helped but made her drowsy When she woke up her L eye was completely shut with associated pain + glasses but denies contact No drainage or trauma PFSH Medical History Asthma Hypothyroid HTN (hypertension) Sleep apnea Surgical History H/O colonoscopy Status post cystoscopy History of removal of ovarian cyst History of thyroidectomy Family History Father Diabetes Hypertension Stroke Mother Dementia Daughter In good health Sister No problems noted. Brother No problems noted. Social History (Updated 07/29/23 @ 14:58 by Luis Coker PA-C) Housing: House Alcohol intake: current Alcohol intake frequency: holidays/special occasions only Patient Tobacco Use Status: Never used Tobacco Tobacco use type: Cigarette e-Cigarette/Vaping Use: Never Used Second Hand Smoke Exposure: No service: No Current occupational status: employed Current occupation: [employer] Cognitive needs: No Hearing needs: No Vision needs: No Review of Systems Const Denies chills, Denies fever(s) and Denies headache(s) Eyes Denies blurry vision, Denies exophthalmos, Denies diplopia, Denies eye discharge and Reports other (edema L upper eyelid) ENT Denies otalgia, Denies headache(s), Denies nasal discharge, Denies throat swelling and Denies tongue swelling Resp Denies chest congestion and Denies cough Skin/Breast Denies rash and Reports skin swelling (L upper eyelid) Neuro Denies headache(s) Aller/Immun Denies throat swelling and Denies tongue swelling Physical Exam Vital Signs: Last Vital Signs Temp 97.9 F 03/05/24 10:35 Pulse 71 03/05/24 10:35 BP 130/84 03/05/24 10:35 Pulse Ox 96 03/05/24 10:35 Oxygen Delivery Method Room Air 03/05/24 10:35 BMI result Body Mass Index 29.9 General: Non-toxic, NAD. Speaking full sentences. Skin: Warm dry throughout Eye: EOMI. PERRL. + L upper eyelid edema and erythema. No inferior orbit edema. No periorbital ttp. No entrpment. No FB under eyelid. + small stye to L upper middle of eyelid Respiratory: No respiratory distress Cardiac: RRR. No murmur MSK: Full ROM extremities. Neurology: A/O No aphasia or facial droop. Gait without abnormality Psych: Good mood and affect Assessment & Plan Assessment & Plan (1) Blepharitis: Code(s): H01.009 - Unspecified blepharitis unspecified eye, unspecified eyelid Qualifiers: Blepharitis type: unspecified type Eyelid: upper Laterality: left Enrique lified Code(s): H01.004 - Unspecified blepharitis left upper eyelid Plan: Patient seen and evaluated. Head elevation, warm compress and antibiotic drop Call with concerns Patient gave verbal understanding and had no additional questions or concerns at time of discharge All questions answered Medications: New ofloxacin 0.3% Apply into L eye 1 drp ophthalmic (eye) QID 7 days 10 mL 0RF Coding Level of Care Code Est Pt Level 3 (80563) Diagnoses Blepharitis of left upper eyelid, unspecified type H01.004 Blepharitis type: unspecified type Eyelid: upper Laterality: left
== END 2024-03-05 11:15 | disposition home or self-care (01) ==
PROVIDERS: PCP Physician Assistant; Visit Provider Physician Assistant
DX: H01.004 Unspecified blepharitis left upper eyelid (principal)

== ENCOUNTER → 2024-03-05 09:26 | Outpatient (BNVA) | payer OTHER, SELFPAY | PROVIDERS: PCP Physician Assistant ==

== ENCOUNTER 2024-03-31 14:05 | Outpatient (AMB) | payer OTHER, SELFPAY ==
[2024-03-31 14:23] VITALS: BP 126/86; PULSE 90; O2SAT 98; BMI 29.7
--- NOTE | 2024-03-31 14:23 | A.OFFPC_ITS ---
Vital Signs 03/31/24 14:23 Height 5 ft 4.5 in Weight 176 lb BMI 29.7 BP 126/86 Blood Pressure Location Lt brachial Position Sitting Pulse 90 Pulse Source Pulse Oximeter Pulse Oximetry (%) 98 Oxygen Delivery Method Room Air Intake Visit Reasons: f/u Hypothyroid/ HTN Allergies No Known Allergies Allergy (Verified 03/31/24 14:26) Medication List - Last Reconciled 03/31/24 by Luis Coker PA-C albuterol sulfate 90 mcg/actuation (ProAir HFA) 2 puffs inhalation Q4-6H PRN alendronate (Fosamax) 70 mg PO QWEEK 12 weeks ascorbate calcium (vitamin C) 500 mg PO DAILY calcium carbonate (Oyster Shell Calcium) 500 mg PO BID 90 days cholecalciferol (vitamin D3) 50 mcg PO DAILY 90 days compr.stocking,knee,long,large As directed levothyroxine 112 mcg PO DAILY lisinopril 10 mg PO DAILY 90 days ofloxacin 0.3% 1 drp ophthalmic (eye) QID 7 days Tobacco use date assessed: 07/29/23 Dental Screening Dental Screen Date: 07/29/23 HPI f/u Hypothyroid/ HTN HPI0 Details This 64 year-old female here today for a follow-up visit . Patient has a past medical history significant for hypertension, hypothyroidism, generalized anxiety disorder. . .. HTN: Blood pressure acceptable today in office.. She reports that home blood pressures have been 120s to 130 systolic. She otherwise feels very good . Hypothyroidism: Most recent TSH stable. She continues on levothyroxine 112 mcg. Has gained some weight since last office visit and will continue work in on lifestyle and dietary modifications. .. Asthma: Has been fairly well controlled, has been able to hike and be more physically active without much shortness of breath. Only rarely using her albuterol inhaler. [facility] Medical History Asthma Hypothyroid HTN (hypertension) Sleep apnea Surgical History H/O colonoscopy Status post cystoscopy History of removal of ovarian cyst History of thyroidectomy Family History Father Diabetes Hypertension Stroke Mother Dementia Daughter In good health Sister No problems noted. Brother No problems noted. Social History Housing: House Alcohol intake: current Alcohol intake frequency: holidays/special occasions only Patient Tobacco Use Status: Never used Tobacco Tobacco use type: Cigarette e-Cigarette/Vaping Use: Never Used Second Hand Smoke Exposure: No service: No Current occupational status: employed Current occupation: [employer] Cognitive needs: No Hearing needs: No Vision needs: No Questionnaire Thrive Questionnaire Date Thrive assessed: 07/29/23 KASSY-7 AMB Questionnaire KASSY-7 Date KASSY - 7 assessed: 07/29/23 Source: Developed by Drs. Paolo Salazar, Genny Juarez, Hamilton Rashid and colleagues, with an educational yung from [employer]. Review of Systems Const Denies headache(s) Eyes Denies loss of vision ENT Denies vertigo, Denies dizziness, Denies headache(s) and Denies sore throat Card Denies chest pain, Denies leg edema and Denies lightheadedness Resp Denies cough, Denies hemoptysis and Denies wheezing GI Denies abdominal pain, Denies melena, Denies constipation, Denies diarrhea and Denies vomiting Denies urinary frequency, Denies dysuria and Denies urinary urgency Musc Denies arthralgias, Denies joint swelling, Denies numbness and Denies tingling Neuro Denies Abnormal speech present, Denies behavioral changes, Denies vertigo, Denies dizziness, Denies headache(s), Denies loss of vision, Denies memory loss, Denies numbness and Denies tingling Psych Denies anxiety, Denies behavioral changes, Denies depression, Denies memory loss and Denies panic attacks Maico/Lymph Denies easy bleeding and Denies easy bruising Aller/Immun Denies wheezing Physical exam (Primary Care) Vital Signs: Last Vital Signs Pulse 90 03/31/24 14:23 BP 126/86 03/31/24 14:23 Pulse Ox 98 03/31/24 14:23 Oxygen Delivery Method Room Air 03/31/24 14:23 BMI result Body Mass Index 29.7 Tobacco/Smoking Status: Tobacco use Status Tobacco use date assessed 07/29/23 03/31/24 14:24 Patient Tobacco Use Status Never used Tobacco 03/31/24 14:24 Tobacco use type Cigarette 03/31/24 14:24 e-Cigarette/Vaping Use Never Used 03/31/24 14:24 Thrive Assessment: Date of Thrive Assessment Date Thrive assessed 07/29/23 03/31/24 14:24 Const General: healthy appearing, no acute distress, alert and awake Nutritional Appearance: well nourished Orientation/consciousness: oriented to person, oriented to place and oriented to time HENMT Ears: TM's normal bilaterally General nose exam: Normal nasal mucous membranes and turbinates present Eyes Conjunctivae: conjunctivae normal Sclerae: sclerae normal Pupils: Equal, round and reactive pupils present Neck Neck: Yes no lymphadenopathy and Yes no JVD Thyroid: Thyroid normal Carotids: no bruits Resp Effort & Inspection: normal respiratory effort and not tachypneic Auscultation: no crackles, no rales, no rhonchi and no wheezes Cardio Rate: regular rate Rhythm: regular rhythm Heart sounds: no murmurs and normal S1 and S2 GI Palpation (GI): Soft to palpation, nontender, no hepatomegaly and no splenomegaly Auscultation: normal bowel sounds Skin General skin exam: no rashes or lesions noted and dry skin Neuro General: oriented to person, oriented to place and oriented to time Cranial nerves: Yes Equal, round and reactive pupils present Speech: No Abnormal speech present Gait exam (Neuro): Normal gait present Motor exam (neuro): no tremor noted Extrem Right upper extremity: full ROM Left upper extremity: full ROM Right lower extremity: full ROM; no edema Left lower extremity: full ROM; no edema Psych Mental Status: mental status grossly normal Speech and movement: Normal speech and movement present Affect: normal affect Attitude: cooperative Thought process: Normal thought process present Office Procedures Flu Questionnaire Does the patient have a severe egg allergy?: No Immunizations Fluarix Triv [id number] (PF) 45 mcg (15 mcg x 3)/0.5 mL IM syringe Performing Provider: Luis Coker PA-C [place] [facility] [place] [facility] Documented (not given) by: BELL Ng on 03/31/24 14:25 Reason Not Given: Received Previously Coding Level of Care Code Est Pt Level 4 (17070) Diagnoses Primary hypertension I10 Hypertension type: primary hypertension Hypothyroidism, unspecified type E03.9 Hypothyroidism type: unspecified Mild intermittent asthma without complication J45.20 Asthma severity: mild Asthma persistence: intermittent Asthma complication type: uncomplicated Assessment & Plan Assessment & Plan (1) HTN (hypertension): Code(s): I10 - Essential (primary) hypertension Category: Medical Qualifiers: Hypertension type: primary hypertension Qualified Code(s): I10 - Essential (primary) hypertension Plan: Patient's blood pressure acceptable today in office. Will continue her current dose of lisinopril with goal blood pressure to remain below 140/90 (2) Hypothyroidism: Code(s): E03.9 - Hypothyroidism, unspecified Category: Medical Qualifiers: Hypothyroidism type: unspecified Qualified Code(s): E03.9 - Hypothyroidism, unspecified Plan: Patient's most recent TSH has been stable. Will continue current dose of levothyroxine at 112 mcg. (3) Asthma: Comment: mild Code(s): J45.909 - Unspecified asthma, uncomplicated Category: Medical Qualifiers: Asthma severity: mild Asthma persistence: intermittent Asthma complication type: uncomplicated Qualified Code(s): J45.20 - Mild intermittent asthma, uncomplicated Plan: Patient reports her asthma has been well controlled on only needing to use albuterol inhaler on a very limited p.r.n. basis. Orders: Orders Influenza [id number] Immunization Today Z23 - Encounter for immunization Patient Instructions: Goal: Blood pressure to remain below 140/90 Barriers: Adherence to physical activity and healthy eating habits
== END 2024-03-31 14:42 | disposition home or self-care (01) ==
PROVIDERS: PCP Physician Assistant; Visit Provider Physician Assistant
DX: I10 Essential (primary) hypertension (principal); E03.9 Hypothyroidism, unspecified; J45.20 Mild intermittent asthma, uncomplicated; Z23 Encounter for immunization

== ENCOUNTER → 2024-03-31 14:05 | Outpatient (BNVA) | payer OTHER, SELFPAY | PROVIDERS: PCP Physician Assistant; Visit Provider Physician Assistant | DX: I10 Essential (primary) hypertension (principal); E03.9 Hypothyroidism, unspecified; J45.20 Mild intermittent asthma, uncomplicated; Z79.899 Other long term (current) drug therapy | CPT/HCPCS: 90471 ==

== ENCOUNTER 2024-07-16 08:07 | Outpatient (REF) | payer OTHER, SELFPAY ==
--- OUTSIDE RECORDS SUMMARY | 2024-07-16 08:10 | XMS_ITS | Patient Health Record ---
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 Name Role Phone Luis Coker Primary Care Provider UnavailPaolo Umaña Unavailable [phone] ALLERGIES No Known Allergies REASON FOR REFERRAL No Information MEDICATIONS Medication SIG (Take, Route, Frequency, Duration) Notes Start Date End Date Status Vitamin B12 Active Vitamin C Active Fluticasone Propionate 50 MCG/ACT 1 spray in each nostril Nasally Once a day for 30 day(s) Active Vitamin D Active Levothyroxine Sodium 125 MCG 1 tablet in the morning on an empty stomach Orally Once a day Active Aspirin Adult Low Dose 81 MG 1 tablet Or ally Once a day for 30 day(s) Active Lisinopril 20 MG TAKE 1 TABLET BY JOSIE TH EVERY DAY Oral for 90 Active SOCIAL HISTORY Sex Assigned At : Social History Observation Description Sex Assigned At Unknown Alcohol Screen Question Answer Notes Did you have a drink contain ing alcohol in the past year? Yes How many drinks did you have on a typical day when you were drinking in the past year? 1 or 2 drinks (0 point) How often did you have 6 or more drinks on one occasion in the past year? Never (0 point) Points 0 Interpretation Negative PROBLEMS Problem Type ICD Code Onset Dates Problem Status W/U Status Risk SNOMED Code Notes Problem Encounter for screening for malignant neoplasm of colon (Z12.11) Active confirmed 302204685 Problem Preprocedural examination (Z01.818) Active confirmed 920351433396910 Problem Diverticulosis of colon (K57.30) Active confirmed Diverticulosi s of colon (752910097) PLAN OF TREATMENT Future Test Test Name Order Date COLONOSCOPY 03/19/2011 COLONOSCOPY 07/02/2021 Insurance Providers Payer Name Payer Address Payer Phone Subscriber Number Group Number Insured Name Patient Relationship to Insured Coverage Start Date Coverage End Date [facility] [address] Darrylronaldo mckinley MERYL [id number] [employer]IDA [employer] Self - patient is the insured MEDICAL (GENERAL) HISTORY Medical History History ICD Code Mild asthma Denies CO,DM,CVA,renal disease Hypertension Hypothyroidism Negative screening colonoscopy in [facility] of 2010 Surgical History Surgery Date(Month/Year) Right ovary removed
[2024-07-16 09:08] LABS: Alanine Aminotransferase 29 U/L (0-31); Alkaline Phosphatase 148 U/L (39-117); Anion Gap 12 (12-20); Aspartate Amino Transferase 31 U/L (5-31); Bilirubin Total 0.4 mg/dL (0.0-1.0); Blood Urea Nitrogen 21 mg/dL (9-16); Calcium 8.7 mg/dL (8.4-10.2); Carbon Dioxide 24 mmol/L (22-29); Chloride 108 mmol/L (96-108); Estimated Glomerular Filt Rate > 60; Glucose Fasting 95 mg/dL (60-99); Potassium 4.1 mmol/L (3.3-5.1); Sodium 140 mmol/L (135-145); Total Protein 7.5 g/dL (6.5-8.0)
[2024-07-16 09:26] LABS: TSH reflex Free T4 26.66 uIU/mL (0.32-4.0)
[2024-07-16 11:30] LABS: Free T4 (Free Thyroxine) 0.72 ng/dL (0.71-1.85)
== END 2024-07-16 08:08 | disposition home or self-care (01) ==
LOC: HO.LAB 08:07
PROVIDERS: PCP Physician Assistant; Visit Provider Physician Assistant
DX: I10 Essential (primary) hypertension (principal); E03.9 Hypothyroidism, unspecified
CPT/HCPCS: 36415; 80053; 84439; 84443

== ENCOUNTER 2024-08-01 15:50 | Outpatient (AMB) | payer MEDICAID, SELFPAY ==
[2024-08-01 15:57] VITALS: BP 152/84; PULSE 68; TEMP 36.3; O2SAT 100; BMI 29.8
--- NOTE | 2024-08-01 15:57 | A.OFFPC_ITS ---
Vital Signs 08/01/24 15:57 Height 5 ft 4.5 in Weight 176 lb 8 oz BMI 29.8 BP 152/84 H Blood Pressure Location Lt brachial Position Sitting Pulse 68 Pulse Source Pulse Oximeter Temp 97.3 F Temp Source Temporal Artery Scan Pulse Oximetry (%) 100 Oxygen Delivery Method Room Air Intake Visit Reasons: Annual exam Intake Note: Patient is here today for a physical. Director Of Employer Services Required: No Accompanied by: Self / Same As Patient Allergies No Known Allergies Allergy (Verified 08/01/24 16:11) Medication List - Last Reconciled 08/01/24 by Luis Coker PA-C albuterol sulfate 90 mcg/actuation (ProAir HFA) 2 puffs inhalation Q4-6H PRN alendronate (Fosamax) 70 mg PO QWEEK 12 weeks ascorbate calcium (vitamin C) 500 mg PO DAILY calcium carbonate (Oyster Shell Calcium) 500 mg PO BID 90 days cholecalciferol (vitamin D3) 50 mcg PO DAILY 90 days compr.stocking,knee,long,large As directed levothyroxine 112 mcg PO DAILY levothyroxine 150 mcg PO DAILY 30 days lisinopril 10 mg PO DAILY 90 days ofloxacin 0.3% 1 drp ophthalmic (eye) QID 7 days Tobacco use date assessed: 08/01/24 Fall risk assessment: No Falls in past year Last assessed Fall Risk: 08/01/24 Dental Screening Dental Screen Date: 07/29/23 [facility] Annual exam HPI Details This 64 year-old female here today for a follow-up visit . Patient has a past medical history significant for hypertension, hypothyroidism, generalized anxiety disorder. . .. HTN: Blood pressure elevated today in office. She does monitor blood pressure a t home and does note systolic numbers 140s to 150s. We previously reduced her lisinopril dose down to 10 mg due to low blood pressure in the setting of good eating habits and a lower weight. . Hypothyroidism: Most recent TSH elevated at 26.. Her levothyroxine was increased to 150 mcg. Will recheck TSH in 6 weeks. Of note has gained small amount of weight over the last year. .. Asthma: Has been fairly well controlled, has been able to hike and be more physically active without much shortness of breath. Only rarely using her albuterol inhaler. .. Osteoporosis: Most recent bone density showing osteoporosis. Has been started on Fosamax without any significant side effects. Mammogram: Mammograms BI-RADS 18 June 2023 -has upcoming appointment for mammogram // Colonoscopy: Colonoscopy done in 2021- normal- 10 year .. Vaccine: UTD with FLu, UTD with Tdap. Up-to-date with shingles, pneumonia and COVID vaccine Laboratory Tests 11/15/22 06/06/23 06/06/23 07:47 08:10 08:19 RBC 4.79 Creatinine 0.79 TSH 0.74 2.05 Urine Microalbumin 6.0 07/16/24 08:20 RBC Creatinine TSH 26.66 H Urine Microalbumin PFSH Medical History Asthma Hypothyroid HTN (hypertension) Sleep apnea Surgical History H/O colonoscopy Status post cystoscopy History of removal of ovarian cyst History of thyroidectomy Family History Father Diabetes Hypertension Stroke Mother Dementia Daughter In good health Sister No problems noted. Brother No problems noted. Social History Housing: House Alcohol intake: current Alcohol intake frequency: holidays/special occasions only Patient Tobacco Use Status: Never used Tobacco Tobacco use type: Cigarette e-Cigarette/Vaping Use: Never Used Second Hand Smoke Exposure: No service: No Current occupational status: employed Current occupation: [employer] Cognitive needs: No Hearing needs: No Vision needs: No Questionnaire PHQ-9 Over the last 2 weeks, how often have you been bothered by any of the following problems? 1. Little interest or pleasure in doing things: not at all 2. Feeling down, depressed, or hopeless: not at all 3. Trouble falling or staying asleep, or sleeping too much: several days 4. Feeling tired or having little energy: not at all 5. Poor appetite or overeating: not at all 6. Feeling bad about yourself - or that you are a failure or have let yourself or your family down: not at all 7. Trouble concentrating on things, such as reading the newspaper or watching television: not at all 8. Moving or speaking so slowly that other people could have noticed. Or the opposite - being so fidgety or restless that you have been moving around a lot more than usual: not at all 9. Thoughts that you would be better off or of hurting yourself in some way: not at all Total score: 1 Depression Screening Interpretation: Negative Depression Screening Done: Yes 27559 - PHQ-9 Billing: Yes Source: Developed by Drs. Paolo Salazar, Genny Juarez, Hamilton Rashid and colleagues, with an educational yung from [employer]. Thrive Questionnaire Date Thrive assessed: 08/01/24 I am a: Patient What is your living situation today?: I have a steady place to live Within the past 12 months, did the food you bought not last and you didn't have the money to get more?: Never true Within the past 12 months, did you worry whether your food would run out before you got money to buy more?: Never true Do you have trouble paying for medicines?: No Do you have trouble getting transportation to medical appointments?: No Do you have trouble paying your heating and electricity bill?: No Do you have trouble taking care of your child, family member or friend?: No Do you have trouble with day-to-day activities such as bathing, preparing meals, shopping, managing finances, etc.?: No Are you currently unemployed and looking for a job?: No Are you interested in more education?: No Please select the resources that you would like help with: None Currently or been in a relationship where the following occur: I choose not to answer THRIVE Score: 0 AUDIT C Alcohol Use Questionnaire (AUDIT-C) 1. How often do you have a drink containing alcohol?: Never 3. How often do you have six or more drinks on one occasion?: Never Total Score: 0 KASSY-7 AMB Questionnaire KASSY-7 Date KASSY - 7 assessed: 08/01/24 Feeling nervous, anxious, or on edge: 0 = Not at all Not being able to stop or control worryin = Not at all Worrying too much about different things: 0 = Not at all Trouble relaxin = Not at all Being so restless that it is hard to sit still: 0 = Not at all Becoming easily annoyed or irritable: 0 = Not at all Feeling afraid as if something awful might happen: 0 = Not at all Total KASSY-7 score (0-4 normal; 5-9 mild; 10-14 moderate; 15-21 severe): 0 Source: Developed by Drs. Paolo Salazar, Genny Juarez, Hamilton Rashid and colleagues, with an educational yung from [employer]. KASSY-7 Assessment Billing KASSY-7 Assessment Tool: KASSY-7 Assessment 15282 Review of Systems Const Denies body aches, Denies chills, Denies excessive sweating, Denies fatigue, Denies fever(s) and Denies headache(s) Eyes Denies blurry vision ENT Denies dysphagia, Denies vertigo, Denies dizziness, Denies headache(s), Denies hearing loss and Denies tinnitus Card Denies chest pain, Denies chest pain with activity, Denies syncope, Denies irregular heart rhythm and Denies dyspnea Resp Denies chest congestion, Denies cough, Denies hemoptysis, Denies dyspnea and Denies wheezing GI Denies abdominal pain, Denies melena, Denies hematochezia, Denies coffee ground emesis, Denies dysphagia, Denies diarrhea, Denies nausea and Denies vomiting Denies urinary frequency, Denies dysuria, Denies urinary hesitancy and Denies urinary urgency Musc Denies arthralgias, Denies limited range of motion, Denies muscle cramps and Denies muscle weakness Skin/Breast Denies rash and Denies skin ulcer Neuro Denies Abnormal speech present, Denies confusion, Denies vertigo, Denies dizziness, Denies syncope, Denies headache(s), Denies memory loss and Denies se izure-like activity Psych Denies anxiety, Denies confusion, Denies depression, Denies memory loss, Denies panic attacks and Denies paranoia Endo Denies excessive sweating, Denies fatigue, Denies flushing, Denies polydipsia and Denies polyuria Aller/Immun Denies wheezing Physical exam (Primary Care) Vital Signs: Last Vital Signs Temp 97.3 F 08/01/24 15:57 Pulse 68 08/01/24 15:57 BP 152/84 H 08/01/24 15:57 Pulse Ox 100 08/01/24 15:57 Oxygen Delivery Method Room Air 08/01/24 15:57 BMI result Body Mass Index 29.8 Tobacco/Smoking Status: Tobacco use Status Tobacco use date assessed 08/01/24 08/01/24 15:58 Patient Tobacco Use Status Never used Tobacco 08/01/24 15:58 Tobacco use type Cigarette 08/01/24 15:58 e-Cigarette/Vaping Use Never Used 08/01/24 15:58 PHQ-9: PHQ-9 Score PHQ-9: Total score 1 08/01/24 16:14 Depression Screening Interpretation: Negative Thrive Assessment: Date of Thrive Assessment Date Thrive assessed 08/01/24 08/01/24 16:04 Currently or been in a relationship where the following occur: I choose not to answer Const General: cooperative, comfortable, no acute distress, alert and awake; No confusion Orientation/consciousness: oriented to person, oriented to place, patient oriented x3 and No confusion HENMT Head: Yes normocephalic Ears: external ears normal and TM's normal bilaterally Face and sinus: No sinus tenderness Mouth: Normal oral and palatal mucosa present and tongue normal Teeth and gingiva: dentition normal and gingiva normal Throat: Yes posterior oropharynx normal, Yes tonsils normal and Yes uvula midline Eyes Conjunctivae: conjunctivae normal Sclerae: sclerae normal Pupils: Equal, round and reactive pupils present EOM: EOMs intact bilaterally Direct Ophthalmoscopy: No no photophobia Neck Neck: Yes no lymphadenopathy, No tender and Yes no JVD Thyroid: Thyroid normal Carotids: no bruits Chest Chest palpation & inspection: no tenderness Resp Effort & Inspection: normal respiratory effort, no audible wheezes, not labored and no stridor Auscultation: no crackles, no rales, no rhonchi and no wheezes Cardio Jugular venous distension: no JVD Rate: regular rate, not bradycardic and not tachycardic Rhythm: regular rhythm Bruits: no carotid bruits Peripheral pulses: Peripheral pulses 2+ throughout GI Inspection: Yes normal to inspection, No abdominal wall ecchymosis and No visible herniation Palpation (GI): Soft to palpation, nontender, no guarding, not rigid and No he patosplenomegaly present Auscultation: normoactive bowel sounds General: Yes no CVA tenderness Back/Spine/Pelvis Back: no CVA tenderness and No back tenderness Cervical Spine: cervical ROM normal Thoracic/Lumbar Spine: thoracic and lumbar spine normal to inspection, straight leg raise negative bilaterally, No thoraco-lumbar ROM limited and No lumbar spinal tenderness Skin Lesions: no lesions Rashes: no rashes Wounds: no wounds Neuro General: oriented to person, oriented to place, patient oriented x3, CN's II-XI intact bilaterally and No confusion Cranial nerves: Yes Equal, round and reactive pupils present and Yes Normal accommodation reflex present Cognition (Neuro): normal cognition Speech: No Abnormal speech present Gait exam (Neuro): Normal gait present Motor exam (neuro): 5/5 motor strength present throughout Extrem Right upper extremity: full ROM; no cyanosis Left upper extremity: full ROM; no cyanosis Right lower extremity: no edema Left lower extremity: no edema Psych Appearance: grossly normal Mental Status: mental status grossly normal Affect: normal affect Attitude: cooperative Thought process: Normal thought process present Coding Level of Care Code Est Pt Prev Care >65y(11632) Diagnoses Adult general medical exam Z00.00 Mild intermittent asthma without complication J45.20 Asthma complication type: uncomplicated Asthma persistence: intermittent Asthma severity: mild Primary hypertension I10 Hypertension type: primary hypertension Hypothyroidism, unspecified type E03.9 Hypothyroidism type: unspecified KASSY (generalized anxiety disorder) F41.1 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 Additional Codes KASSY-7 Assessment Billing - KASSY-7 Assessment Tool: KASSY-7 Assessment 26035 ([id number]) PHQ-9 - 95697 - PHQ-9 Billing: Yes ([id number]) Assessment & Plan Assessment & Plan (1) Adult general medical exam: Code(s): Z00.00 - Encounter for general adult medical examination without abnormal findings Category: Medical Plan: As per HPI (2) Asthma: Comment: mild Code(s): J45.909 - Unspecified asthma, uncomplicated Category: Medical Qualifiers: Asthma complication type: uncomplicated Asthma persistence: intermittent Asthma severity: mild Qualified Code(s): J45.20 - Mild intermittent asthma, uncomplicated Plan: Patient reports her asthma has been fairly well controlled with p.r.n. use of her albuterol inhaler. (3) HTN (hypertension): Code(s): I10 - Essential (primary) hypertension Category: Medical Qualifiers: Hypertension type: primary hypertension Qualified Code(s): I10 - Essential (primary) hypertension Plan: Patient's blood pressure elevated today in office. Will increase her lisinopril dose to 20 mg for better blood pressure control. Advised to monitor blood pressure at home with goal blood pressure to be below 140/90 (4) Hypothyroidism: Code(s): E03.9 - Hypothyroidism, unspecified Category: Medical Qualifiers: Hypothyroidism type: unspecified Qualified Code(s): E03.9 - Hypothyroidism, unspecified Plan: Patient's most recent TSH elevated at 23. She admits to taking the medication on empty stomach on a daily basis. We have increased her levothyroxine to 150 mcg. Will recheck TSH in 6 weeks. (5) KASSY (generalized anxiety disorder): Code(s): F41.1 - Generalized anxiety disorder Category: Medical Plan: Patient does have a history of anxiety mostly upon traveling on planes. She does premedicate herself for long plane rides. Will supply patient with a few doses of lorazepam to use 1 hour before plane rides. (6) Osteoporosis of lumbar spine: Code(s): M81.0 - Age-related osteoporosis without current pathological fracture Category: Medical Plan: Patient does have osteoporosis noted on most recent bone density. She has been started on Fosamax , calcium and vitamin-D supplementation. Orders: Orders Microalbumin, Random (w Creat) 6 Months I10 - Essential (primary) hypertension Comprehensive [place]. Panel Fast 6 Months I10 - Essential (primary) hypertension Complete Blood Count no Diff 6 Months I10 - Essential (primary) hypertension TSH reflex Free T4 6 Months E03.9 - Hypothyroidism, unspecified Medications: New lorazepam To take hour before flights 1 mg PO DAILY 5 tabs 0RF anxiety 5 days lisinopril 20 mg PO DAILY 90 tabs 1RF 90 days I10 - Essential (primary) hypertension Changed From albuterol sulfate 90 mcg/actuation (ProAir HFA) 2 puffs inhalation Q4-6H PRN 8.5 grams 2RF shortness of breath or wheezing J45.909 - Unspecified asthma, uncomplicated To albuterol sulfate 90 mcg/actuation 2 puffs inhalation Q4-6H PRN 8.5 grams 2RF shortness of breath or wheezing J45.909 - Unspecified asthma, uncomplicated On Hold lisinopril Hold Comment: Doctor's Order 10 mg PO DAILY 90 days 90 tabs 2RF I10 - Essential (primary) hypertension
--- OUTSIDE RECORDS SUMMARY | 2024-08-01 18:18 | XMS_ITS | Patient Health Record ---
Author Organization [facility] Address [address] [place] [address] Care Team Providers Care Residential Fee Appraiser Name Role Phone Luis Coker Primary Care Provider UnavailPaolo Umaña Unavailable [phone] Allergies No Known Allergies Reason For Referral No Information Medications Medication SIG (Take, Route, Frequency, Duration) Notes [...] TH EVERY DAY Oral for 90 Active Social History Alcohol Screen Question Answer Notes Did you [...] Never (0 point) Points 0 Interpretation Negative Section Notes: Nonsmoker; no sig alcohol Problems Problem Type SNOMED Code ICD Code Onset Dates Problem Status W/U Status Risk Notes Problem 126263909 Encounter for screening for malignant neoplasm of colon (Z12.11) Active confirmed Problem [id number] Preprocedural examination (Z01.818) Active confirmed Problem Diverticulosis of colon (746089830) Diverticulosis of colon (K57.30) Active confirmed Plan Of Treatment Future Test Test Name Order Date COLONOSCOPY 03/19/2011 COLONOSCOPY 07/02/2021 Insurance Providers Payer Name Payer Address Payer Phone Subscriber Number Group Number Insured Name Patient Relationship to Insured Coverage Start Date Coverage End Date [facility] /[facility] [address] [place] Su[place] [phone] [id number] LIDA [employer] Self - patient is the insured Medical (General) History Medical History History ICD Code Mild asthma Denies [place],DM,CVA,renal disease Hypertension Hypothyroidism [facility] Surgical History Surgery Date(Month/Year) Right ovary removed
== END 2024-08-01 16:43 | disposition home or self-care (01) ==
LOC: HO.HMCH 15:52
PROVIDERS: PCP Physician Assistant; Visit Provider Physician Assistant
DX: Z00.00 Encounter for general adult medical examination without abnormal findings (principal); J45.20 Mild intermittent asthma, uncomplicated; I10 Essential (primary) hypertension; E03.9 Hypothyroidism, unspecified; F41.1 Generalized anxiety disorder; M81.0 Age-related osteoporosis without current pathological fracture

== ENCOUNTER → 2024-08-01 15:50 | Outpatient (BNVA) | payer MEDICAID, SELFPAY | PROVIDERS: PCP Physician Assistant; Visit Provider Physician Assistant | DX: Z00.00 Encounter for general adult medical examination without abnormal findings (principal); J45.20 Mild intermittent asthma, uncomplicated; I10 Essential (primary) hypertension; E03.9 Hypothyroidism, unspecified; F41.1 Generalized anxiety disorder; M81.0 Age-related osteoporosis without current pathological fracture | CPT/HCPCS: 96127; 99397 ==

== ENCOUNTER 2024-08-05 15:15 | Outpatient (REF) | payer MEDICAID, SELFPAY ==
--- OUTSIDE RECORDS SUMMARY | 2024-08-05 17:17 | XMS_ITS | Patient Health Record ---
Author Organization [facility] Address [address] [place] [address] Care Team Providers Care Archivist Political History Name Role Phone Luis Coker Primary Care Provider UnavailPaolo Umaña Unavailable [phone] Allergies No Known Allergies Reason For Referral [...] Problem Status W/U Status Risk Notes Problem 977365629 Encounter for screening for malignant neoplasm of colon (Z12.11) Active confirmed Problem [id number] Preprocedural examination (Z01.818) Active confirmed Problem Diverticulosis of colon (297095949) Diverticulosis of colon (K57.30) Active confirmed Plan Of Treatment Future Test Test Name Order Date COLONOSCOPY 03/19/2011 COLONOSCOPY 07/02/2021 Insurance Providers Payer Name Payer Address Payer Phone Subscriber Number Group Number Insured Name Patient Relationship to Insured Coverage Start Date Coverage End Date [facility] [address] [place] Su[place] [phone] [id number] LIDA IN[employer] Self - patient is the insured Medical (General) History Medical History History ICD Code Mild asthma Denies [place],DM,CVA,renal disease Hypertension Hypothyroidism Negative screening colonoscopy in [facility] er of 2010 Surgical History Surgery Date(Month/Year) Right ovary removed
== END 2024-08-05 15:16 | disposition home or self-care (01) ==
LOC: HO.MAMMO 15:15
PROVIDERS: PCP Physician Assistant; Visit Provider Physician Assistant
DX: Z12.31 Encounter for screening mammogram for malignant neoplasm of breast (principal)
CPT/HCPCS: 77063; 77067

== ENCOUNTER → 2024-08-05 15:30 | Outpatient (BNV) | payer MEDICAID, SELFPAY | PROVIDERS: PCP Physician Assistant; Visit Provider Internal Medicine | DX: Z12.31 Encounter for screening mammogram for malignant neoplasm of breast (principal) | CPT/HCPCS: 77063; 77067 ==

== ENCOUNTER 2024-08-27 08:01 | Outpatient (REF) | payer MEDICAID, SELFPAY ==
--- OUTSIDE RECORDS SUMMARY | 2024-08-27 08:03 | XMS_ITS | Patient Health Record ---
Author Organization [facility] Address [address] [place] [address] Care Team Providers Care Ironer Sock Name Role Phone Luis Coker Primary Care Provider UnavailPaolo Umaña Unavailable [phone] Allergies No Known Allergies Reason For Referral [...] Problem Status W/U Status Risk Notes Problem 437235124 Encounter for screening for malignant neoplasm of colon (Z12.11) Active confirmed Problem 149918851883953 Preprocedural examination (Z01.818) Active confirmed Problem Diverticulosis of colon (841476650) Diverticulosis of colon (K57.30) Active confirmed Plan Of Treatment Future Test Test Name Order Date COLONOSCOPY 03/19/2011 COLONOSCOPY 07/02/2021 Insurance Providers Payer Name Payer Address Payer Phone Subscriber Number Group Number Insured Name Patient Relationship to Insured Coverage Start Date Coverage End Date [facility] [address] [place] Su[place] [phone] [id number] LIDA IN[employer] Self - patient is the insured Medical (General) History Medical History History ICD Code Mild asthma Denies [place],DM,CVA,renal disease Hypertension Hypothyroidism [facility] Surgical History Surgery Date(Month/Year) Right ovary removed
[2024-08-27 08:59] LABS: Hematocrit 40.2 % (37.0-47.0); Hemoglobin 13.3 g/dl (12.0-16.0); Mean Corpuscular HGB Conc 33.1 g/dl (31.0-35.0); Mean Corpuscular Hemoglobin 28.7 pg (27.0-33.0); Mean Corpuscular Volume 86.6 fL (80.0-98.0); Mean Platelet Volume 9.4 fL (9.4-12.3); Platelet Count 340 X10*3/uL (160-400); Red Blood Count 4.64 X10*6/uL (4.20-5.50); Red Cell Distribution Width 11.9 % (11.0-16.0); White Blood Count 3.8 X10*3/uL (4.8-10.8)
[2024-08-27 09:48] LABS: Creatinine Urine 222.41 mg/dL
[2024-08-27 09:52] LABS: Alanine Aminotransferase 34 U/L (0-31); Albumin Level 3.9 g/dL (3.5-5.0); Alkaline Phosphatase 113 U/L (39-117); Anion Gap 10 (12-20); Aspartate Amino Transferase 28 U/L (5-31); Bilirubin Total 0.5 mg/dL (0.0-1.0); Blood Urea Nitrogen 18 mg/dL (9-16); Calcium 9.2 mg/dL (8.4-10.2); Carbon Dioxide 27 mmol/L (22-29); Chloride 111 mmol/L (96-108); Estimated Glomerular Filt Rate > 60; Glucose Fasting 105 mg/dL (60-99); Potassium 4.2 mmol/L (3.3-5.1); Sodium 144 mmol/L (135-145); Total Protein 6.7 g/dL (6.5-8.0)
[2024-08-27 09:57] LABS: TSH reflex Free T4 0.11 uIU/mL (0.32-4.0)
== END 2024-08-27 08:02 | disposition home or self-care (01) ==
LOC: HO.LAB 08:01
PROVIDERS: PCP Physician Assistant; Visit Provider Physician Assistant
DX: E03.9 Hypothyroidism, unspecified (principal); I10 Essential (primary) hypertension
CPT/HCPCS: 36415; 80053; 82043; 82570; 84439; 84443; 85027

== ENCOUNTER 2024-10-29 07:48 | Outpatient (REF) | payer OTHER, SELFPAY ==
[2024-10-29 09:45] LABS: TSH reflex Free T4 0.12 uIU/mL (0.32-4.0)
[2024-10-29 12:36] LABS: Free T4 (Free Thyroxine) 1.36 ng/dL (0.71-1.85)
== END 2024-10-29 07:49 | disposition home or self-care (01) ==
LOC: HO.LAB 07:48
PROVIDERS: PCP Physician Assistant; Visit Provider Physician Assistant
DX: E03.9 Hypothyroidism, unspecified (principal)
CPT/HCPCS: 36415; 84439; 84443

== ENCOUNTER 2024-12-17 09:06 | Outpatient (REF) | payer OTHER, SELFPAY ==
--- OUTSIDE RECORDS SUMMARY | 2024-12-17 09:09 | XMS_ITS | Patient Health Record ---
Author Organization [facility] Address [address] [place] [address] Care Team Providers Care Patient Resource Specialist Name Role Phone Luis Coker Primary Care Provider UnavailPaolo Umaña Unavailable [phone] Allergies No Known Allergies Reason For Referral [...] Problem Status W/U Status Risk Notes Problem 616821280 Encounter for screening for malignant neoplasm of colon (Z12.11) Active confirmed Problem [id number] Preprocedural examination (Z01.818) Active confirmed Problem Diverticulosis of colon (929642263) Diverticulosis of colon (K57.30) Active confirmed Plan Of Treatment Future Test Test Name Order Date COLONOSCOPY 03/19/2011 COLONOSCOPY 07/02/2021 Insurance Providers Payer Name Payer Address Payer Phone Subscriber Number Group Number Insured Name Patient Relationship to Insured Coverage Start Date Coverage End Date [facility] [address] [place] Su[place] [phone] [id number] LIDA INGRAM Self - patient is the insured Medical (General) History Medical History History ICD Code Mild asthma Denies [place],DM,CVA,renal disease Hypertension Hypothyroidism Negative screening colonoscopy in [facility] er of 2010 Surgical History Surgery Date(Month/Year) Right ovary removed
[2024-12-17 12:00] LABS: Free T4 (Free Thyroxine) 1.06 ng/dL (0.71-1.85)
== END 2024-12-17 09:07 | disposition home or self-care (01) ==
LOC: HO.LAB 09:06
PROVIDERS: PCP Physician Assistant; Visit Provider Physician Assistant
DX: E03.9 Hypothyroidism, unspecified (principal)
CPT/HCPCS: 36415; 84439; 84443

== ENCOUNTER 2025-02-01 15:37 | Outpatient (AMB) | payer MEDICAID, SELFPAY ==
--- NOTE | 2025-02-01 15:40 | MHC.PC.OV ---
Vital Signs 02/01/25 15:41 Height 5 ft 4.5 in Weight 165 lb 6 oz BMI 27.9 BP 120/64 Blood Pressure Location Lt brachial Position Sitting Pulse 89 Pulse Oximetry (%) 99 Oxygen Delivery Method Room Air Intake Visit Reasons: f/u HTN Intake Note: Patient is here to follow up on HTN. High Pressure Operator Required: No Folding Machine Setter: Not Required per policy Accompanied by: Self / Same As Patient Allergies No Known Allergies Allergy (Verified 02/01/25 15:48) Medication List - Last Reconciled 02/01/25 by Luis Coker PA-C albuterol sulfate 90 mcg/actuation 2 puffs inhalation Q4-6H PRN alendronate (Fosamax) 70 mg PO QWEEK 12 weeks ascorbate calcium (vitamin C) 500 mg PO DAILY calcium carbonate (Oyster Shell Calcium) 500 mg PO BID 90 days cholecalciferol (vitamin D3) 50 mcg PO DAILY 90 days compr.stocking,knee,long,large As directed levothyroxine (Synthroid) 137 mcg PO DAILY 30 days lisinopril 20 mg PO DAILY 90 days Tobacco use date assessed: 02/01/25 Fall risk assessment: No Falls in past year Last assessed Fall Risk: 02/01/25 Dental Screening Dental Screen Date: 02/01/25 Did you have a dental visit in the last 12 months?: Yes Did you have a dental problem in the last 6 months where you did not have access to dental care?: No Was dental information given to patient?: Patient has dentist HPI f/u HTN HPI Details This 64 year-old female here today for a follow-up visit . Patient has a past medical history significant for hypertension, hypothyroidism, generalized anxiety disorder. . .. HTN: Patient's blood pressure acceptable today in office. We are now on higher dose of lisinopril which seems to be effective. She has lost 10 lb since last office visit due to better eating habits and more physical activity. . Hypothyroidism: Has been difficult to manage her hypothyroidism, has been making changes in her Synthroid dose. Most recent dose at 137 mcg.. Most recent TSH elevated at 7.1 .. .. Osteoporosis: Most recent bone density showing osteoporosis. Has been started on Fosamax without any significant side effects. Laboratory Tests 08/27/24 10/29/24 12/17/24 08:28 08:10 09:17 RBC 4.64 TSH 0.11 L 0.12 L 7.16 H PFSH Medical History Asthma Hypothyroid HTN (hypertension) Sleep apnea Surgical History H/O colonoscopy Status post cystoscopy History of removal of ovarian cyst History of thyroidectomy Family History Father Diabetes Hypertension Stroke Mother Dementia Daughter In good health Sister No problems noted. Brother No problems noted. Social History Housing: House Alcohol intake: current Alcohol intake frequency: holidays/special occasions only Patient Tobacco Use Status: Never used Tobacco Tobacco use type: Cigarette e-Cigarette/Vaping Use: Never Used Second Hand Smoke Exposure: No service: No Current occupational status: employed Current occupation: [employer] Cognitive needs: No Hearing needs: No Vision needs: No Questionnaire Thrive Questionnaire Date Thrive assessed: 07/25/24 I am a: Patient What is your living situation today?: I have a steady place to live Within the past 12 months, did the food you bought not last and you didn't have the money to get more?: Never true Within the past 12 months, did you worry whether your food would run out before you got money to buy more?: Never true Do you have trouble paying for medicines?: No Do you have trouble getting transportation to medical appointments?: No Do you have trouble paying your heating and electricity bill?: No Do you have trouble taking care of your child, family member or friend?: No Do you have trouble with day-to-day activities such as bathing, preparing meals, shopping, managing finances, etc.?: No Are you currently unemployed and looking for a job?: No Are you interested in more education?: No Please select the resources that you would like help with: None Currently or been in a relationship where the following occur: I choose not to answer THRIVE Score: 0 KASSY-7 AMB Questionnaire KASSY-7 Date KASSY - 7 assessed: 08/01/24 Source: Developed by Genny Ronquillo.W. Larry, Hamilton Rashid and colleagues, with an educational yung from [employer]. Review of Systems Const Denies headache(s) Eyes Denies loss of vision ENT Denies vertigo, Denies dizziness, Denies headache(s) and Denies sore throat Card Denies chest pain, Denies leg edema and Denies lightheadedness Resp Denies cough, Denies hemoptysis and Denies wheezing GI Denies abdominal pain, Denies melena, Denies constipation, Denies diarrhea and Denies vomiting Denies urinary frequency, Denies dysuria and Denies urinary urgency Musc Denies arthralgias, Denies joint swelling, Denies numbness and Denies tingling Neuro Denies Abnormal speech present, Denies behavioral changes, Denies vertigo, Denies dizziness, Denies headache(s), Denies loss of vision, Denies memory loss, Denies numbness and Denies tingling Psych Denies anxiety, Denies behavioral changes, Denies depression, Denies memory loss and Denies panic attacks Maico/Lymph Denies easy bleeding and Denies easy bruising Aller/Immun Denies wheezing Physical exam (Primary Care) Vital Signs: Last Vital Signs Pulse 89 02/01/25 15:41 BP 120/64 02/01/25 15:41 Pulse Ox 99 02/01/25 15:41 Oxygen Delivery Method Room Air 02/01/25 15:41 BMI result Body Mass Index 27.9 Tobacco/Smoking Status: Tobacco use Status Tobacco use date assessed 02/01/25 02/01/25 15:45 Patient Tobacco Use Status Never used Tobacco 02/01/25 15:45 Tobacco use type Cigarette 02/01/25 15:45 e-Cigarette/Vaping Use Never Used 02/01/25 15:45 Thrive Assessment: Date of Thrive Assessment Date Thrive assessed 07/25/24 02/01/25 15:45 Currently or been in a relationship where the following occur: I choose not to answer Const General: healthy appearing, no acute distress, alert and awake Nutritional Appearance: well nourished Orientation/consciousness: oriented to person, oriented to place and oriented to time HENMT Ears: TM's normal bilaterally General nose exam: Normal nasal mucous membranes and turbinates present Eyes Conjunctivae: conjunctivae normal Sclerae: sclerae normal Pupils: Equal, round and reactive pupils present Neck Neck: Yes no lymphadenopathy and Yes no JVD Thyroid: Thyroid normal Carotids: no bruits Resp Effort & Inspection: normal respiratory effort and not tachypneic Auscultation: no crackles, no rales, no rhonchi and no wheezes Cardio Rate: regular rate Rhythm: regular rhythm Heart sounds: no murmurs and normal S1 and S2 GI Palpation (GI): Soft to palpation, nontender, no hepatomegaly and no splenomegaly Auscultation: normal bowel sounds Skin General skin exam: no rashes or lesions noted and dry skin Neuro General: oriented to person, oriented to place and oriented to time Cranial nerves: Yes Equal, round and reactive pupils present Speech: No Abnormal speech present Gait exam (Neuro): Normal gait present Motor exam (neuro): no tremor noted Extrem Right upper extremity: full ROM Left upper extremity: full ROM Right lower extremity: full ROM; no edema Left lower extremity: full ROM; no edema Psych Mental Status: mental status grossly normal Speech and movement: Normal speech and movement present Affect: normal affect Attitude: cooperative Thought process: Normal thought process present Coding Level of Care Code Est Pt Level 4 (05654) Diagnoses Primary hypertension I10 Hypertension type: primary hypertension Hypothyroidism, unspecified type E03.9 Hypothyroidism type: unspecified Assessment & Plan Assessment & Plan (1) HTN (hypertension): Code(s): I10 - Essential (primary) hypertension Category: Medical Qualifiers: Hypertension type: primary hypertension Qualified Code(s): I10 - Essential (primary) hypertension Plan: Patient's blood pressure acceptable today in office. Has been making dietary and lifestyle changes, has been able to lose 10 lb since last office visit . Will continue her current dose of lisinopril. Advised to monitor blood pressure at home with goal blood pressure to be below 140/90 (2) Hypothyroidism: Code(s): E03.9 - Hypothyroidism, unspecified Category: Medical Qualifiers: Hypothyroidism type: unspecified Qualified Code(s): E03.9 - Hypothyroidism, unspecified Plan: Patient's most recent TSH elevated at 7.1 She admits to taking the medication on empty stomach on a daily basis. We have made adjustments in her thyroid, now on 13 7 mcg.. Will recheck TSH in 6 weeks. Orders: Orders TSH reflex Free T4 02/01/25 E03.9 - Hypothyroidism, unspecified US thyroid 02/01/25 E03.9 - Hypothyroidism, unspecified
[2025-02-01 15:41] VITALS: BP 120/64; PULSE 89; O2SAT 99; BMI 27.9
--- OUTSIDE RECORDS SUMMARY | 2025-02-01 19:01 | XMS_ITS | Patient Health Record ---
Author Organization [facility] Address [address] [place] [address] Care Team Providers Care Pit Steward Name Role Phone Luis Coker Primary Care Provider UnavailPaolo Umaña Unavailable [phone] Allergies No Known Allergies Reason For Referral [...] Problem Status W/U Status Risk Notes Problem [id number] Encounter for screening for malignant neoplasm of colon (Z12.11) Active confirmed Problem [id number] Preprocedural examination (Z01.818) Active confirmed Problem Diverticulosis of colon (517283857) Diverticulosis of colon (K57.30) Active confirmed Plan Of Treatment Future Test Test Name Order Date COLONOSCOPY 03/19/2011 COLONOSCOPY 07/02/2021 Insurance Providers Payer Name Payer Address Payer Phone Subscriber Number Group Number Insured Name Patient Relationship to Insured Coverage Start Date Coverage End Date [facility] /[facility] [address] [place] [phone] [id number] LIDA INGRAM Self - patient is the insured Medical (General) History Medical History History ICD Code Mild asthma Denies NM,DM,CVA,renal disease Hypertension Hypothyroidism Negative screening colonoscopy in [facility] er of 2010 Surgical History Surgery Date(Month/Year) Right ovary removed
--- OUTSIDE RECORDS SUMMARY | 2025-02-01 19:01 | XMS_ITS | Clinical Summary ---
Author Organization [facility] Address [address] [place], [place] [address] Phone Care Team Providers Care Tool And Cutter Grinder Name Role Phone Luis Coker Primary Care Provider + Allergies No known active allergies Medications levothyroxine (SYNTHROID, LEVOTHROID) 125 MCG tablet 1 tablet on an empty stomach in the morning Orally Once a day Active fluticasone prp-sod.chl,bic arb 50 mcg- 0.9 % ksps Active ascorbic acid (VITAMIN C ORAL) Take by mouth. Active cholecalciferol , vitamin D3, (VITAMIN D3 ORAL) Take by mouth. Active lisinopril (PRINIVIL,ZESTR IL) 20 MG tablet Take 20 mg by mouth daily. 06/17/2020 Active Active Problems No known active problems Immunizations Immunization Administration Dates Next Due COVID-19 (Pre-03/09) Moderna Vaccine, mRNA, PF 05/01/2021,07/12/2020,06/12/2020 Influenza Quadrivalent Preservative Free IM 09/2022,02/20/2022,02/14/2021 Social History Tobacco Use Types Packs/Day Years Used Date Smoking Tobacco: Never Smokeless Tobacco: Never Education Answer Date Recorded Are you interested in more education? Not on renate e 09/12/2022 Are you concerned about learning? Not on file 09/12/2022 No 09/12/2022 No 09/12/2022 Digital Access Answer Date Recorded No 10/13/2022 No 10/13/2022 Reliable internet access at home? Not on file 10/13/2022 Device with a working camera? Not on file Comments Unknown Sex and Gender Information Value Date Recorded Sex Assigned at Not on file Legal Sex Female 4:35 PM EST Gender Identity Not on file Sexual Orientation Not on file Last Filed Vital Signs Vital Sign Reading Time Taken Comments Blood Pressure 158/114 05/14/2021 9:05 AM EST Pulse 94 05/14/2021 9:05 AM EST Temperature 36.6 C (97.9 F) 05/14/2021 9:05 AM EST Respiratory Rate 18 05/14/2021 9:05 AM EST Oxygen Saturation 97% 05/14/2021 9:05 AM EST Inhaled Oxygen Concentration - - Weight 79.8 kg (176 lb) 09/06/2020 8:38 AM EDT Height 160 cm (5' 3 ) 09/06/2020 8:38 AM EDT Body Mass Index 31.18 09/06/2020 8:38 AM EDT Plan of Treatment Health Maintenance Due Date Last Done Comments LIPID PANEL 1958 DEPRESSION SCREENING 1970 HEPATITIS C SCREENING 1976 COLOGUARD 2003 COLONOSCOPY 2003 COLORECTAL CANCER SCREENING 2003 FIT TEST 2003 FOBT 2003 SIGMOIDOSCOPY 2003 VIRTUAL COLONOSCOPY 2003 MAMMOGRAM 02/05/2016 02/04/2014 PNEUMOCOCCAL VACCINES (50+ years) (2 of 2 - PCV) 05/21/2021 05/21/2020 CREATININE LEVEL 09/03/2021 09/03/2020 POTASSIUM LEVEL 09/03/2021 09/03/2020 TSH LEVEL 09/03/2021 09/03/2020 OSTEOPOROSIS SCREENING INITIAL (ONE-TIME) 2023 COVID-19 VACCINE ( season) 2024 05/01/2021, 07/12/2020, 06/12/2020 INFLUENZA VACCINE (#1) 2024 , 02/20/2022, 02/14/2021, Additional history exists Adult Td,Tdap Booster 11/17/2028 11/17/2018 RSV VACCINE (1 - 1-dose 75+ series) 2033 ZOSTER VACCINES Completed 06/17/2019, 03/18/2019 SMOKING STATUS SCREENING (Once After 26 Yrs) Completed 05/14/2021 HEPATITIS A VACCINES Aged Out No long er eligible based on patient's age to complete this topic HIB VACCINES Aged Out No longer eligi ble based on patient's age to complete this topic MENINGOCOCCAL VACCINES (ACWY) Aged Out No longer eligible based on patient's age to complete this topic MENINGOCOCCAL VACCINES (B) Aged Out N o longer eligible based on patient's age to complete this topic Medical Devices Not on file Procedures Procedure Name Priority Date/Time Associated Diagnosis Comments TSH WITH REFLEX Routine 09/03/2020 9:55 AM EDT [place] COMPREHENSIVE METABOLIC PANEL Routine 09/03/2020 9:55 AM EDT Flushing from Last 3 Months or Most Recently Relevant to Health Maintenance Results * (ABNORMAL) Comprehensive metabolic panel (09/03/2020 9:55 AM EDT) SODIUM 140 133 - 146 mmol/L [facility] POTASSIUM 4.0 3.3 - 5.1 mmol/L [facility] CHLORIDE 103 96 - 108 mmol/L [facility] CO2 28 21 - 35 mmol/L [facility] BUN 9 6 - 19 mg/dL [facility] CREATININE 0.70 0.5 - 1.5 mg/dL [facility] GLUCOSE 86 70 - 99 mg/dL [facility] ALBUMIN 4.0 3.9 - 4.8 g/dL [facility] TOTAL PROTEIN 6.9 6.5 - 8.0 g/dL [facility] CALCIUM 9.1 8.4 - 10.3 mg/dL [facility] ALKALINE PHOSPHATASE 209(H) 39 - 117 U/L [facility] TOTAL BILIRUBIN 0.4 0.0 - 1.2 mg/dL [facility] AST 46(H) 0 - 37 U/L [facility] ALT 53(H) 0 - 40 U/L [facility] GLOBULIN 2.9 1 - 4.8 g/dL [facility] EGFR 93 >59 mL/min/1.7 3m2 [facility] Comment:Estimated glomerular filtration rate calculated using the CKD-EPI equation. ANION GAP 13 10 - 20 mmol/L [facility] Blood 09/03/2020 9:55 AM EDT 09/03/2020 11:42 AM EDT Francisco RAMIREZ LAB BLOOD ORDERABLES Final Result [address] [address] * TSH with reflex (09/03/2020 9:55 AM EDT) TSH 0.30 0.27 - 4.20 uIU/mL [facility] Blood 09/03/2020 9:55 AM EDT 09/03/2020 11:42 AM EDT Francisco RAMIREZ LAB BLOOD ORDERABLES Final Result Performing Organization Address City/[facility]/ZIP Co de Phone Number [address] [address] from Last 3 Months or Most Recently Relevant to Health Maintenance Insurance [place] [id number] [employer]YE[employer] FAM[employer]YEES FAMILY [employer]OYE[employer] FAMILY EMPLOYEES FAMILY [facility] EMPLOYEES FAMILY Care Teams Tool And Cutter Grinder Relationship Specialty [place] [address] [place] [id number] PCP - General 09/03/20 Additional Source Comments The information contained in this document represents components of the legal health record. It is not the complete legal health record.[facility]
== END 2025-02-01 16:14 | disposition home or self-care (01) ==
LOC: HO.HMCH 15:38
PROVIDERS: PCP Physician Assistant; Visit Provider Physician Assistant
DX: I10 Essential (primary) hypertension (principal); E03.9 Hypothyroidism, unspecified

== ENCOUNTER → 2025-02-01 15:37 | Outpatient (BNVA) | payer MEDICAID, SELFPAY | PROVIDERS: PCP Physician Assistant; Visit Provider Physician Assistant | DX: I10 Essential (primary) hypertension (principal); F41.1 Generalized anxiety disorder; E03.9 Hypothyroidism, unspecified; M81.0 Age-related osteoporosis without current pathological fracture; Z79.899 Other long term (current) drug therapy | CPT/HCPCS: 99212 ==

== ENCOUNTER 2025-03-11 07:48 | Outpatient (REF) | payer MEDICAID, SELFPAY ==
--- OUTSIDE RECORDS SUMMARY | 2025-03-11 07:49 | XMS_ITS | Clinical Summary ---
Author Organization [facility] Address [address] [place], [place] [id number] Phone Care Team Providers Care Software Configuration Specialist Name Role Phone Luis Coker Primary [...] (Pre-03/09) Moderna Vaccine, mRNA, PF 05/01/2021,07/12/2020,06/12/2020 Influenza High-Dose Trivalen t Preservative Free IM 02/16/2025 Influenza Quadrivalent Preservative Free IM 10/09/2022,02/20/2022,02/14/2021 Social History Tobacco Use Types Packs/Day Years [...] SCREENING INITIAL (ONE-TIME) 2023 COVID-19 VACCINE ( - 2024- season) 2025 05/01/2021, 07/12/2020, 06/12/2020 Adult Td,Tdap Booster 11/17/2028 11/17/2018 RSV VACCINE (1 - 1-dose 75+ series) 2033 ZOSTER VACCINES Completed 06/17/2019, 03/18/2019 SMOKING STATUS SCREENING (Once After 26 Yrs) Completed 05/14/2021 INFLUENZA VACCINE Completed 02/16/2025, , 02/20/2022, Additional history exists HEPATITIS A VACCINES Aged Out No long [...] EDT) SODIUM 140 133 - 146 mmol/L [facility] POTASSIUM 4.0 3.3 - 5.1 mmol/L [facility] CHLORIDE 103 96 - 108 mmol/L [facility] CO2 28 21 - 35 mmol/L [facility] BUN 9 6 - 19 mg/dL [facility] CREATININE 0.70 0.5 - 1.5 mg/dL [facility] GLUCOSE 86 70 - 99 mg/dL [facility] ALBUMIN 4.0 3.9 - 4.8 g/dL [facility] TOTAL PROTEIN 6.9 6.5 - 8.0 g/dL [facility] CALCIUM 9.1 8.4 - 10.3 mg/dL [facility] ALKALINE PHOSPHATASE 209(H) 39 - 117 U/L [facility] TOTAL BILIRUBIN 0.4 0.0 - 1.2 mg/dL [facility] AST 46(H) 0 - 37 U/L [facility] ALT 53(H) 0 - 40 U/L [facility] GLOBULIN 2.9 1 - 4.8 g/dL [facility] EGFR 93 >59 mL/min/1.7 3m2 [facility] Comment:Estimated glomerular filtration rate calculated using the CKD-EPI equation. ANION GAP 13 10 - 20 mmol/L [facility] Blood 09/03/2020 9:55 AM EDT 09/03/2020 11:42 AM EDT Francisco RAMIREZ LAB BLOOD ORDERABLES Final Result Performing Organization Address City/[facility]/ZIP Co de Phone Number [address] [address] * TSH with reflex (09/03/2020 9:55 AM EDT) TSH 0.30 0.27 - 4.20 uIU/mL [facility] Blood 09/03/2020 9:55 AM EDT 09/03/2020 11:42 AM EDT Francisco RAMIREZ LAB BLOOD ORDERABLES Final Result Performing Organization Address [facility] Co de Phone Number [address] [address] from Last 3 Months or Most Recently Relevant to Health Maintenance Insurance [place] [address] [place] [address] EMPLOYEES FAMILY [employer] FAMILY [employer]ILY EM[employer] FAMILY EMPLOYEES FAMILY EMPLOYEES FAMILY [facility] EMPLOYEES FAMILY Care Teams Software Configuration Specialist Relationship Specialty Start Date End Date Luis Coker PA [address] [place] [id number] PCP - General 09/03/20 Additional Source Comments The information contained in this document represents components of the legal health record. It is not the complete legal health record.[facility]
--- OUTSIDE RECORDS SUMMARY | 2025-03-11 07:49 | XMS_ITS | Patient Health Record ---
Author Organization [facility] Address [address] [place] [address] Care Team Providers Care Block Bolter Mule Operator Name Role Phone Luis Coker Primary Care Provider UnavailPaolo Umaña Unavailable [phone] Allergies No Known Allergies Reason For Referral No Information Medications Medication SIG (Take, Route, Frequency, Duration) Notes Start Date End Date Status Vitamin B12 Active Vitamin C Active Fluticasone Propionate 50 MCG/ACT 1 spray in each nostril Nasally Once a day; Duration: 30 day(s) Active Vitamin D Active Levothyroxine Sodium 125 MCG 1 tablet in the morning on an empty stomach Orally Once a day Active Aspirin Adult Low Dose 81 MG 1 tablet Or ally Once a day; Duration: 30 day(s) Active Lisinopril 20 MG TAKE 1 TABLET BY JOSIE TH EVERY DAY Oral; Duration: 90 Active Social History Alcohol Screen Question [...] Problem Status W/U Status Risk Notes Problem Screening for malignant neoplasm of colon (809821878) Encounter for screening for malignant neoplasm of colon (Z12.11) Active confirmed Problem Preprocedural examination (822663875663961) Preprocedural examination (Z01.818) Active confirmed Problem Diverticulosis of colon (750197766) Diverticulosis of colon (K57.30) Active confirmed Plan Of Treatment Future Test Test Name Order Date COLONOSCOPY 03/19/2011 COLONOSCOPY 07/02/2021 Insurance Providers Payer Name Payer Address Payer Phone Subscriber Number Group Number Insured Name Patient Relationship to Insured Coverage Start Date Coverage End Date [facility] /[facility] [address] [place], [place] [phone] [id number] LIDA INGRAM Self - patient is the insured Medical (General) History Medical History History ICD Code Mild asthma Denies [place],DM,CVA,renal disease Hypertension Hypothyroidism Negative screening colonoscopy in [facility] er of 2010 Surgical History Surgery Date(Month/Year) Right ovary removed
[2025-03-11 10:34] LABS: Free T4 (Free Thyroxine) 1.46 ng/dL (0.71-1.85)
== END 2025-03-11 07:49 | disposition home or self-care (01) ==
LOC: HO.LAB 07:48
PROVIDERS: PCP Physician Assistant; Visit Provider Physician Assistant
DX: E03.9 Hypothyroidism, unspecified (principal)
CPT/HCPCS: 36415; 84439; 84443

== ENCOUNTER 2025-03-30 14:00 | Outpatient (AMB) | payer MEDICAID, SELFPAY ==
[2025-03-30 14:20] VITALS: BP 128/86; PULSE 86; TEMP 36.2; O2SAT 97; BMI 28.6
--- NOTE | 2025-03-30 14:20 | MHC.PC.OV ---
Vital Signs 03/30/25 14:20 Height 5 ft 4.5 in Weight 169 lb 6 oz BMI 28.6 BP 128/86 Blood Pressure Location Lt brachial Position Sitting Pulse 86 Pulse Source Pulse Oximeter Temp 97.1 F Temp Source Temporal Artery Scan Pulse Oximetry (%) 97 Oxygen Delivery Method Room Air Intake Visit Reasons: 6 week f/u Allergies No Known Allergies Allergy (Verified 03/30/25 14:26) Medication List - Last Reconciled 03/30/25 by Luis Coker PA-C albuterol sulfate 90 mcg/actuation 2 puffs inhalation Q4-6H PRN alendronate (Fosamax) 70 mg PO QWEEK 12 weeks ascorbate calcium (vitamin C) 500 mg PO DAILY calcium carbonate (Oyster Shell Calcium) 500 mg PO BID 90 days cholecalciferol (vitamin D3) 50 mcg PO DAILY 90 days compr.stocking,knee,long,large As directed levothyroxine (Synthroid) 137 mcg PO DAILY 30 days lisinopril 20 mg PO DAILY 90 days Tobacco use date assessed: 03/30/25 Fall risk assessment: No Falls in past year Last assessed Fall Risk: 03/30/25 Dental Screening Dental Screen Date: 03/30/25 Did you have a dental visit in the last 12 months?: Yes Did you have a dental problem in the last 6 months where you did not have access to dental care?: No Was dental information given to patient?: Patient has dentist HPI 6 week f/u HPI Details This 65 year-old female here today for a follow-up visit . Patient has a past medical history significant for hypertension, hypothyroidism, generalized anxiety disorder. .. HTN: Patient's blood pressure acceptable today in office. We are now on higher dose of lisinopril which seems to be effective. She continues to keep her weight down with lifestyle and dietary modification . Hypothyroidism: Has been difficult to manage her hypothyroidism, has been making changes in her Synthroid dose. Most recent dose at 137 mcg.. Most recent TSH low at 0.27 Of note patient does have an upcoming ultrasound of thyroid you eval for any thyroid concern nodules Laboratory Tests 08/27/24 10/29/24 12/17/24 08:28 08:10 09:17 TSH 0.11 L 0.12 L 7.16 H 03/11/25 07:55 TSH 0.27 L PFSH Medical History Asthma Hypothyroid HTN (hypertension) Sleep apnea Surgical History H/O colonoscopy Status post cystoscopy History of removal of ovarian cyst History of thyroidectomy Family History Father Diabetes Hypertension Stroke Mother Dementia Daughter In good health Sister No problems noted. Brother No problems noted. Social History Housing: House Alcohol intake: current Alcohol intake frequency: holidays/special occasions only Patient Tobacco Use Status: Never used Tobacco Tobacco use type: Cigarette e-Cigarette/Vaping Use: Never Used Second Hand Smoke Exposure: No service: No Current occupational status: employed Current occupation: [employer] Cognitive needs: No Hearing needs: No Vision needs: No Questionnaire PHQ-9 Over the last 2 weeks, how often have you been bothered by any of the following problems? 1. Little interest or pleasure in doing things: not at all 2. Feeling down, depressed, or hopeless: not at all 3. Trouble falling or staying asleep, or sleeping too much: several days 4. Feeling tired or having little energy: not at all 5. Poor appetite or overeating: not at all 6. Feeling bad about yourself - or that you are a failure or have let yourself or your family down: not at all 7. Trouble concentrating on things, such as reading the newspaper or watching television: not at all 8. Moving or speaking so slowly that other people could have noticed. Or the opposite - being so fidgety or restless that you have been moving around a lot more than usual: not at all 9. Thoughts that you would be better off or of hurting yourself in some way: not at all Total score: 1 Depression Screening Interpretation: Negative Depression Screening Done: Yes 67000 - PHQ-9 Billing: Patient declined-do not bill Source: Developed by Drs. Paolo Salazar, Genny Juarez, Hamilton Rashid and colleagues, with an educational yung from [employer]. Thrive Questionnaire Date Thrive assessed: 07/25/24 I am a: Patient What is your living situation today?: I have a steady place to live Within the past 12 months, did the food you bought not last and you didn't have the money to get more?: Never true Within the past 12 months, did you worry whether your food would run out before you got money to buy more?: Never true Do you have trouble paying for medicines?: No Do you have trouble getting transportation to medical appointments?: No Do you have trouble paying your heating and electricity bill?: No Do you have trouble taking care of your child, family member or friend?: No Do you have trouble with day-to-day activities such as bathing, preparing meals, shopping, managing finances, etc.?: No Are you currently unemployed and looking for a job?: No Are you interested in more education?: No Please select the resources that you would like help with: None Currently or been in a relationship where the following occur: I choose not to answer THRIVE Score: 0 AUDIT C Alcohol Use Questionnaire (AUDIT-C) 1. How often do you have a drink containing alcohol?: Never 3. How often do you have six or more drinks on one occasion?: Never Total Score: 0 KASSY-7 AMB Questionnaire KASSY-7 Date KASSY - 7 assessed: 08/01/24 Feeling nervous, anxious, or on edge: 0 = Not at all Not being able to stop or control worryin = Not at all Worrying too much about different things: 0 = Not at all Trouble relaxin = Not at all Being so restless that it is hard to sit still: 0 = Not at all Becoming easily annoyed or irritable: 0 = Not at all Feeling afraid as if something awful might happen: 0 = Not at all Total KASSY-7 score (0-4 normal; 5-9 mild; 10-14 moderate; 15-21 severe): 0 Source: Developed by Drs. Paolo Salazar, Genny Juarez, Hamilton Rashid and colleagues, with an educational yung from [employer]. KASSY-7 Assessment Billing KASSY-7 Assessment Tool: KASSY-7 Assessment 89840 Review of Systems Const Denies headache(s) Eyes Denies loss of vision ENT Denies vertigo, Denies dizziness, Denies headache(s) and Denies sore throat Card Denies chest pain, Denies leg edema and Denies lightheadedness Resp Denies cough, Denies hemoptysis and Denies wheezing GI Denies abdominal pain, Denies melena, Denies constipation, Denies diarrhea and Denies vomiting Denies urinary frequency, Denies dysuria and Denies urinary urgency Musc Denies arthralgias, Denies joint swelling, Denies numbness and Denies tingling Neuro Denies Abnormal speech present, Denies behavioral changes, Denies vertigo, Denies dizziness, Denies headache(s), Denies loss of vision, Denies memory loss, Denies numbness and Denies tingling Psych Denies anxiety, Denies behavioral changes, Denies depression, Denies memory loss and Denies panic attacks Maico/Lymph Denies easy bleeding and Denies easy bruising Aller/Immun Denies wheezing Physical exam (Primary Care) Vital Signs: Last Vital Signs Temp 97.1 F 03/30/25 14:20 Pulse 86 03/30/25 14:20 BP 128/86 03/30/25 14:20 Pulse Ox 97 03/30/25 14:20 Oxygen Delivery Method Room Air 03/30/25 14:20 BMI result Body Mass Index 28.6 Tobacco/Smoking Status: Tobacco use Status Tobacco use date assessed 03/30/25 03/30/25 14:23 Patient Tobacco Use Status Never used Tobacco 03/30/25 14:23 Tobacco use type Cigarette 03/30/25 14:23 e-Cigarette/Vaping Use Never Used 03/30/25 14:23 PHQ-9: PHQ-9 Score PHQ-9: Total score 1 03/30/25 14:55 Depression Screening Interpretation: Negative Thrive Assessment: Date of Thrive Assessment Date Thrive assessed 07/25/24 03/30/25 14:23 Currently or been in a relationship where the following occur: I choose not to answer Const General: healthy appearing, no acute distress, alert and awake Nutritional Appearance: well nourished Orientation/consciousness: oriented to person, oriented to place and oriented to time HENMT Ears: TM's normal bilaterally General nose exam: Normal nasal mucous membranes and turbinates present Eyes Conjunctivae: conjunctivae normal Sclerae: sclerae normal Pupils: Equal, round and reactive pupils present Neck Neck: Yes no lymphadenopathy and Yes no JVD Thyroid: Thyroid normal Carotids: no bruits Resp Effort & Inspection: normal respiratory effort and not tachypneic Auscultation: no crackles, no rales, no rhonchi and no wheezes Cardio Rate: regular rate Rhythm: regular rhythm Heart sounds: no murmurs and normal S1 and S2 GI Palpation (GI): Soft to palpation, nontender, no hepatomegaly and no splenomegaly Auscultation: normal bowel sounds Skin General skin exam: no rashes or lesions noted and dry skin Neuro General: oriented to person, oriented to place and oriented to time Cranial nerves: Yes Equal, round and reactive pupils present Speech: No Abnormal speech present Gait exam (Neuro): Normal gait present Motor exam (neuro): no tremor noted Extrem Right upper extremity: full ROM Left upper extremity: full ROM Right lower extremity: full ROM; no edema Left lower extremity: full ROM; no edema Psych Mental Status: mental status grossly normal Speech and movement: Normal speech and movement present Affect: normal affect Attitude: cooperative Thought process: Normal thought process present Coding Level of Care Code Est Pt Level 4 (87457) Diagnoses Hypothyroidism, unspecified type E03.9 Hypothyroidism type: unspecified Additional Codes KASSY-7 Assessment Billing - KASSY-7 Assessment Tool: KASSY-7 Assessment 00889 ([id number]) Assessment & Plan Assessment & Plan (1) Hypothyroidism: Code(s): E03.9 - Hypothyroidism, unspecified Category: Medical Qualifiers: Hypothyroidism type: unspecified Qualified Code(s): E03.9 - Hypothyroidism, unspecified Plan: Patient's most recent TSH depressed at 0.27 from 7.1. Patient is now using her thyroid medication 6 days a week at 03:00 in the morning. She admits to taking the medication on empty stomach on a daily basis. Will check thyroid ultrasound
--- OUTSIDE RECORDS SUMMARY | 2025-03-30 17:23 | XMS_ITS | Patient Health Record ---
Author Organization [facility] Address [address] [place] [address] Care Team Providers Care Spin Tank Tender Name Role Phone Luis Coker Primary Care Provider UnavailPaolo Umaña Unavailable [phone] Allergies No Known Allergies Reason For Referral [...] Problem Screening for malignant neoplasm of colon (104869357) Encounter for screening for malignant neoplasm of colon (Z12.11) Active confirmed Problem Preprocedural examination (008280849988792) Preprocedural examination (Z01.818) Active confirmed Problem Diverticulosis of colon (926491891) Diverticulosis of colon (K57.30) Active confirmed Plan Of Treatment Future Test Test Name Order Date COLONOSCOPY 03/19/2011 COLONOSCOPY 07/02/2021 Insurance Providers Payer Name Payer Address Payer Phone Subscriber Number Group Number Insured Name Patient Relationship to Insured Coverage Start Date Coverage End Date [facility] [address] [place], [place] [phone] [id number] LIDA INGRAM Self - patient is the insured Medical (General) History Medical History History ICD Code Mild asthma Denies [place],DM,CVA,renal disease Hypertension Hypothyroidism Negative screening colonoscopy in [facility] er of 2010 Surgical History Surgery Date(Month/Year) Right ovary removed
--- OUTSIDE RECORDS SUMMARY | 2025-03-30 17:23 | XMS_ITS | Clinical Summary ---
Author Organization [facility] Address [address] [place], [place] [id number] Phone Care Team Providers Care Nursing Manager Name Role Phone Luis Coker Primary Care [...] on patient's age to complete this topic IPV VACCINES Aged Out No longer eligi ble [...] 9:55 AM EDT [place] COMPREHENSIVE METABOLIC PANEL (CMP) Routine 09/03/2020 9:55 AM EDT [place] from Last 3 Months or Most Recently Relevant to Health Maintenance Results * (ABNORMAL) Comprehensive metabolic panel (09/03/2020 9:55 AM EDT) SODIUM 140 133 - 146 mmol/L [facility] POTASSIUM 4.0 3.3 - 5.1 mmol/L [facility] CHLORIDE 103 96 - 108 mmol/L [facility] CO2 28 21 - 35 mmol/L [facility] BUN 9 6 - 19 mg/dL [facility] CREATININE 0.70 0.5 - 1.5 mg/dL [facility] GLUCOSE 86 70 - 99 mg/dL [facility] ALBUMIN 4.0 3.9 - 4.8 g/dL [facility] TOTAL PROTEIN 6.9 6.5 - 8.0 g/dL [facility] CALCIUM 9.1 8.4 - 10.3 mg/dL [facility] ALKALINE PHOSPHATASE 209(H) 39 - 117 U/L [facility] TOTAL BILIRUBIN 0.4 0.0 - 1.2 mg/dL [facility] AST 46(H) 0 - 37 U/L [facility] ALT 53(H) 0 - 40 U/L [facility] GLOBULIN 2.9 1 - 4.8 g/dL [facility] EGFR 93 >59 mL/min/1.7 3m2 [facility] Comment:Estimated glomerular filtration rate calculated using the CKD-EPI equation. ANION GAP 13 10 - 20 mmol/L [facility] Blood 09/03/2020 9:55 AM EDT 09/03/2020 11:42 AM EDT Francisco RAMIREZ LAB BLOOD BKR ORDERABLES Fi nal Result [address] [address] * TSH with reflex (09/03/2020 9:55 AM EDT) TSH 0.30 0.27 - 4.20 uIU/mL [facility] Blood 09/03/2020 9:55 AM EDT 09/03/2020 11:42 AM EDT Francisco RAMIREZ LAB BLOOD BKR ORDERABLES Fi nal Result Performing Organization Address City/[facility]/ZIP Co de Phone Number [address] [address] from Last 3 Months or Most Recently Relevant to Health Maintenance Insurance [facility] [place] [id number] [facility] [employer] [place] [address] [place] [address] EMPLOYEES FAMILY [facility] [employer] [facility] [employer] [employer] [employer] FAMILY [employer] FAMILY [employer] FAMILY Care Teams Nursing Manager Relationship Specialty Start Date End Date Luis Coker PA [address] [place] [address] PCP - General 09/03/20 Additional Source Comments The information contained in this document represents components of the legal health record. It is not the complete legal health record.[facility]
== END 2025-03-30 14:50 | disposition home or self-care (01) ==
LOC: HO.HMCH 14:01
PROVIDERS: PCP Physician Assistant; Visit Provider Physician Assistant
DX: E03.9 Hypothyroidism, unspecified (principal)

== ENCOUNTER → 2025-03-30 14:00 | Outpatient (BNVA) | payer MEDICAID, SELFPAY | PROVIDERS: PCP Physician Assistant; Visit Provider Physician Assistant | DX: I10 Essential (primary) hypertension (principal); E03.9 Hypothyroidism, unspecified; F41.1 Generalized anxiety disorder | CPT/HCPCS: 96127; 99212 ==

== ENCOUNTER 2025-04-26 14:44 | Outpatient (REF) | payer OTHER, SELFPAY ==
--- NOTE | ~2025-04-26 | US_ITS ---
EXAMINATION: US THYROID HISTORY: E03.9 - Hypothyroidism, unspecified TECHNIQUE: Real-time grayscale ultrasound imaging was performed and images were reviewed. COMPARISON: There are no prior studies available for comparison. FINDINGS: SIZE: The right thyroid lobe measures 3.4 x 1.0 x 0.9 cm. The left thyroid lobe measures 0.0 x 0.8 x 1.0 cm. The isthmus measures 2 mm. FLOW: Flow to the gland is normal. ECHOGENICITY: The echotexture of the gland is heterogeneous. NODULES: There are subcentimeter nodules as described below: Nodule #: 1 Location: Lower pole of the right thyroid lobe measuring 5 x 3 x 3 mm. Shape: Wider than tall (0 points) Margins: Ill-defined (0 points) Echotexture: Indeterminate (1 point) Composition: Mixed (1 point) Calcifications: None (0 points) Total points: 2 TIRADS: TR2: Not suspicious Nodule #: 2 Location: Midportion of the right thyroid lobe measuring 5 x 3 x 2 mm. Shape: Wider than tall (0 points) Margins: Ill-defined (0 points) Echotexture: Indeterminate (1 point) Composition: Mixed (1 point) Calcifications: None (0 points) Total points: 2 TIRADS: TR2: Not suspicious US/US thyroid IMPRESSION: Subcentimeter right thyroid nodules as described. ACR TI-RADS Guidelines TR1 (0 points): Benign. No follow-up or biopsy required TR2 (2 points): Not Suspicious. No biopsy or follow up indicated TR3 (3 points): Mildly Suspicious. FNA if >= 2.5 cm, Follow if >= 1.5 cm TR4 (4-6 points): Moderately Suspicious. FNA if >= 1.5 cm, Follow if >= 1.0 cm TR5 (>=7 points): Highly Suspicious. FNA if >= 1.0 cm, Follow if >= 0.5 cm Electronically signed by: Paolo Gruber MD 04/26/2025 03:44 PM [facility]
--- OUTSIDE RECORDS SUMMARY | 2025-04-26 23:04 | XMS_ITS | Patient Health Record ---
Author Organization [facility] Address [address] [place] [address] Care Team Providers Care Elocution Teacher Name Role Phone Luis Coker Primary Care Provider UnavailPaolo Umaña Unavailable [phone] Allergies No Known Allergies Reason For Referral No Information Medications Medication SIG (Take, Route, Frequency, Duration) Notes Start Date End Date Status Vitamin B12 Active Vitamin C Active Fluticasone Propionate 50 MCG/ACT Suspension 1 spray in each nostril Nasally Once a day; Duration: 30 day(s) Active Vitamin D Active Levothyroxine Sodium 125 MCG Tablet 1 tablet in the morning on an empty stomach Orally Once a day Active Aspirin Adult Low Dose 81 MG Tablet Delayed Release 1 tablet Orally Once a day; Duration: 30 day(s) Active Lisinopril 20 MG Tablet TAKE 1 TABLET BY MOUTH EVERY DAY Oral; Duration: 90 Active Social History Social History Drugs/Alcohol: Social Info Question Answer Notes Alcohol Screen Did you have a drink containing alcohol in the past year? Yes How many drinks did you have on a typical day when you were drinking in the past year? 1 or 2 drinks (0 point) How often did you have 6 or more drinks on one occasion in the past year? 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 Section Notes: Nonsmoker; no sig alcohol Problems Problem Type SNOMED Code ICD Code Onset Dates Problem Status W/U Status Risk Notes Problem Screening for malignant neoplasm of colon (983587220) Encounter for screening for malignant neoplasm of colon (Z12.11) Active confirmed Problem Preprocedural examination (965315942813626) Preprocedural examination (Z01.818) Active confirmed Problem Diverticulosis of colon (583330295) Diverticulosis of colon (K57.30) Active confirmed Plan Of Treatment Future Test Test Name Order Date COLONOSCOPY 03/19/2011 COLONOSCOPY 07/02/2021 Insurance Providers Payer Name Payer Address Payer Phone Subscriber Number Group Number Insured Name Patient Relationship to Insured Coverage Start Date Coverage End Date [facility] /[facility] [address] [place], [place] [phone] [id number] LIDA INGRAM Self - patient is the insured Medical (General) History Medical History History ICD Code Mild asthma Denies [place],DM,CVA,renal disease Hypertension Hypothyroidism Negative screening colonoscopy in [facility] er of 2010 Surgical History Surgery Date(Month/Year) Right ovary removed
--- OUTSIDE RECORDS SUMMARY | 2025-04-26 23:04 | XMS_ITS | Clinical Summary ---
Author Organization [facility] Address [address] [place], [place] [id number] Phone Care Team Providers Care Photography Teacher Name Role Phone Luis Coker Primary [...] EDT) SODIUM 140 133 - 146 mmol/L [facility] POTASSIUM 4.0 3.3 - 5.1 mmol/L [facility] CHLORIDE 103 96 - 108 mmol/L [facility] CO2 28 21 - 35 mmol/L [facility] BUN 9 6 - 19 mg/dL [facility] CREATININE 0.70 0.5 - 1.5 mg/dL [facility] GLUCOSE 86 70 - 99 mg/dL [facility] ALBUMIN 4.0 3.9 - 4.8 g/dL [facility] TOTAL PROTEIN 6.9 6.5 - 8.0 g/dL [facility] CALCIUM 9.1 8.4 - 10.3 mg/dL [facility] ALKALINE PHOSPHATASE 209(H) 39 - 117 U/L [facility] TOTAL BILIRUBIN 0.4 0.0 - 1.2 mg/dL [facility] AST 46(H) 0 - 37 U/L [facility] ALT 53(H) 0 - 40 U/L [facility] GLOBULIN 2.9 1 - 4.8 g/dL [facility] EGFR 93 >59 mL/min/1.7 3m2 [facility] Comment:Estimated glomerular filtration rate calculated using the CKD-EPI equation. ANION GAP 13 10 - 20 mmol/L [facility] Blood 09/03/2020 9:55 AM EDT 09/03/2020 11:42 AM EDT Francisco RAMIREZ LAB BLOOD BKR ORDERABLES Fi nal Result Performing Organization Address City/[facility]/ZIP Co de Phone Number [address] [address] * TSH with reflex (09/03/2020 9:55 AM EDT) TSH 0.30 0.27 - 4.20 uIU/mL [facility] Blood 09/03/2020 9:55 AM EDT 09/03/2020 11:42 AM EDT Francisco RAMIREZ LAB BLOOD BKR ORDERABLES Fi nal Result Performing Organization Address [facility] Co de Phone Number [address] [address] from Last 3 Months or Most Recently Relevant to Health Maintenance Insurance [employer] [place] [id number] [facility]YEES FAM[employer] FAM[employer] FAM[employer] FAM[employer] Care Teams Photography Teacher Relationship Specialty Start Date End Date Luis Coker PA [address] [place] [address] PCP - General 09/03/20 Additional Source Comments The information contained in this document represents components of the legal health record. It is not the complete legal health record.[facility]
== END 2025-04-26 14:45 ==
LOC: HO.US 14:44
PROVIDERS: PCP Physician Assistant; Visit Provider Physician Assistant
DX: E03.9 Hypothyroidism, unspecified (principal)
CPT/HCPCS: 76536

== ENCOUNTER → 2025-04-26 14:46 | Outpatient (BNV) | payer OTHER, SELFPAY | PROVIDERS: PCP Physician Assistant; Visit Provider Radiology Diagnostic Radiology | DX: E03.9 Hypothyroidism, unspecified (principal); E04.2 Nontoxic multinodular goiter | CPT/HCPCS: 76536 ==

== ENCOUNTER 2025-04-29 07:41 | Outpatient (REF) | payer OTHER, SELFPAY ==
--- OUTSIDE RECORDS SUMMARY | 2025-04-29 07:44 | XMS_ITS | Clinical Summary ---
Author Organization [facility] Address [address] [place], [place] [id number] Phone Care Team Providers Care Manager Wound Name Role Phone Luis Coker Primary Care [...] EDT) SODIUM 140 133 - 146 mmol/L [facility] POTASSIUM 4.0 3.3 - 5.1 mmol/L [facility] CHLORIDE 103 96 - 108 mmol/L [facility] CO2 28 21 - 35 mmol/L [facility] BUN 9 6 - 19 mg/dL [facility] CREATININE 0.70 0.5 - 1.5 mg/dL [facility] GLUCOSE 86 70 - 99 mg/dL [facility] ALBUMIN 4.0 3.9 - 4.8 g/dL [facility] TOTAL PROTEIN 6.9 6.5 - 8.0 g/dL [facility] CALCIUM 9.1 8.4 - 10.3 mg/dL [facility] ALKALINE PHOSPHATASE 209(H) 39 - 117 U/L [facility] TOTAL BILIRUBIN 0.4 0.0 - 1.2 mg/dL [facility] AST 46(H) 0 - 37 U/L [facility] ALT 53(H) 0 - 40 U/L [facility] GLOBULIN 2.9 1 - 4.8 g/dL [facility] EGFR 93 >59 mL/min/1.7 3m2 [facility] Comment:Estimated glomerular filtration rate calculated using the CKD-EPI equation. ANION GAP 13 10 - 20 mmol/L [facility] Blood 09/03/2020 9:55 AM EDT 09/03/2020 11:42 AM EDT Francisco RAMIREZ LAB BLOOD BKR ORDERABLES Fi nal Result Performing Organization Address [facility]/ZIP Co de Phone Number [address] [id number] * TSH with reflex (09/03/2020 9:55 AM EDT) TSH 0.30 0.27 - 4.20 uIU/mL [facility] Blood 09/03/2020 9:55 AM EDT 09/03/2020 11:42 AM EDT Francisco RAMIREZ LAB BLOOD BKR ORDERABLES Fi nal Result Performing Organization Address [facility] Co de Phone Number [address] [address] from Last 3 Months or Most Recently Relevant to Health Maintenance Insurance [facility] [employer] [place] [id number] [employer] [employer] [facility] [employer] [facility] [employer] [facility] [employer] [employer] [employer] Care Teams Manager Wound Relationship Specialty Start Date End Date Luis Coker PA [address] [place] [id number] PCP - General 09/03/20 Additional Source Comments The information contained in this document represents components of the legal health record. It is not the complete legal health record.[facility]
--- OUTSIDE RECORDS SUMMARY | 2025-04-29 07:45 | XMS_ITS | Patient Health Record ---
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 Section Notes: Nonsmoker; no sig alcohol Problems Problem Type SNOMED Code ICD Code Onset Dates Problem Status W/U Status Risk Notes Problem Screening for malignant neoplasm of colon (812561969) Encounter for screening for malignant neoplasm of colon (Z12.11) Active confirmed Problem Preprocedural examination (427541755263763) Preprocedural examination (Z01.818) Active confirmed Problem Diverticulosis of colon (967718477) Diverticulosis of colon (K57.30) Active confirmed Plan Of Treatment Future Test Test Name Order Date COLONOSCOPY 03/19/2011 COLONOSCOPY 07/02/2021 Insurance Providers Payer Name Payer Address Payer Phone Subscriber Number Group Number Insured Name Patient Relationship to Insured Coverage Start Date Coverage End Date [facility] [address] [place], [place] [phone] [id number] [employer]IDA [employer] Self - patient is the insured Medical (General) History Medical History History ICD Code Mild asthma Denies MT,DM,CVA,renal disease Hypertension Hypothyroidism Negative screening colonoscopy in [facility] er of 2010 Surgical History Surgery Date(Month/Year) Right ovary removed
== END 2025-04-29 07:42 | disposition home or self-care (01) ==
LOC: HO.LAB 07:41
PROVIDERS: PCP Physician Assistant; Visit Provider Physician Assistant
DX: E03.9 Hypothyroidism, unspecified (principal)
CPT/HCPCS: 36415; 84443